=== PATIENT | male | born 1955 | race Caucasian/White ===

== ENCOUNTER 2016-06-01 12:47 | Emergency (ER) | payer BC, OTHER ==
[~2016-06-01 12:47] MED LIST: AMLO10TA2 PO; ASPI81TA44 PO; LISI1TAB7 PO
[2016-06-01] MEDS ORDERED: IV NORMAL SALINE 1000ML BAG 1,000 ML IV SCH (13:33)
--- NOTE | 2016-06-01 13:38 | PHYS DOC ---
Past Medical History Past Medical History: Alcoholism, Hypertension Additional Past Medical Histor: "BLOOD INFECTION" "ENLARGED HEART" RUPTURED SPLEEN Past Surgical History: No Surgical History Alcohol Use: Heavy Drug Use: Marijuana Adult General Chief Complaint Chief Complaint: ABDOMINAL PAIN HPI HPI Patient is a 61 year old female who presents with abdominal pain. Patient reports for the past 3 days he has been having "hard" abdominal pain has been moving around his abdomen some. Patient reports pain around his umbilicus, as well as the upper abdomen. This is accompanied by nausea and vomiting as well as hot flashes. He denies any diarrhea. No clear inciting or mitigating factors. He did take a Prilosec this morning with insufficient relief. Review of Systems Review of Systems Constitutional: Hot flashes Eyes: Denies change in visual acuity or eye pain HENT: Denies nasal congestion or sore throat Respiratory: Denies cough or shortness of breath Cardiovascular: Denies chest pain GI: Abdominal pain, nausea, vomiting. Denies bloody stools or diarrhea : Denies dysuria or hematuria Musculoskeletal: Denies back pain or joint pain Integument: Denies rash or skin lesions Neurologic: Denies headache, focal weakness or sensory changes Current Medications Current Medications Current Medications Medications (Trade) Dose Ordered Sig/Partha Start Time Stop Time Status Last Admin Dose Admin Famotidine (Pepcid) 20 mg 1X ONCE 06/01/16 13:45 06/01/16 13:46 DC 06/01/16 13:49 20 MG Hydromorphone HCl (Dilaudid) 0.5 mg 1X ONCE 06/01/16 16:45 06/01/16 16:56 DC 06/01/16 17:15 0.5 MG Info (Do NOT chart on this entry -- for MONITORING) 1 each PRN DAILY PRN 06/01/16 14:15 06/01/16 19:37 DC Iohexol (Omnipaque 300 Mg/ml) 60 ml 1X ONCE 06/01/16 14:15 06/01/16 14:16 DC 06/01/16 14:13 60 ML Morphine Sulfate 4 mg 1X ONCE 06/01/16 13:45 06/01/16 13:46 DC 06/01/16 13:50 4 MG Ondansetron HCl (Zofran) 4 mg 1X ONCE 06/01/16 13:45 06/01/16 13:46 DC 06/01/16 13:49 4 MG Sodium Chloride (Iv Sodium Chloride 0.9% 1000ml Bag) 1,000 ml @ 1,000 mls/hr Q1H 06/01/16 13:33 06/01/16 14:32 DC 06/01/16 13:33 1,000 MLS/HR Allergies Allergies Allergies Coded Allergies Type Severity Reaction Last Updated Verified No Known Drug Allergies 06/08/13 No Physical Exam Physical Exam Constitutional: Well developed, well nourished, no acute distress, non-toxic appearance HENT: Normocephalic, atraumatic, bilateral external ears normal Eyes: EOMI, conjunctiva normal, no discharge Neck: Normal range of motion, no stridor Cardiovascular: Heart rate normal, regular rhythm, no murmur Lungs & Thorax: Bilateral breath sounds clear to auscultation Abdomen: Bowel sounds normal, soft, non-distended, periumbilical/RUQ TTP without guarding or rebound, negative Kraft's sign Skin: Warm, dry, no erythema, no rash Extremities: No obvious deformity, no edema Neurologic: Alert and oriented X 3, no gross deficits noted Psychologic: Affect normal, judgement normal, mood normal Current Patient Data Vital Signs Vital Signs Date Time Temp Pulse Resp B/P Pulse Ox O2 Delivery O2 Flow Rate FiO2 06/01/16 17:15 12 06/01/16 13:55 64 201/108 96 06/01/16 13:33 98.4 Room Air 98.4 Lab Values Laboratory Tests Test 06/01/16 13:10 06/01/16 13:25 Urine Collection Type Unknown Urine Color [place] Urine Clarity Clear Urine pH 6.0 Urine Specific [place] 1.020 Urine Protein >=300mg/dL (NEG-TRACE) Urine Glucose (UA) 100mg/dL (NEG) Urine Ketones (Stick) 15mg/dL (NEG) Urine Blood Small (NEG) Urine Nitrite Negative (NEG) Urine Bilirubin Small (NEG) Urine Urobilinogen Dipstick 1.0mg/dL (0.2 mg/dL) Urine Leukocyte Esterase Trace (NEG) Urine RBC 3-5/HPF (0-2) Urine WBC 1-4/HPF (0-4) Urine Squamous Epithelial Cells Occ/LPF Urine Bacteria 0/HPF (0-FEW) Urine Hyaline Casts Few/HPF Urine Mucus Mod/LPF White Blood Count 10.0x10^3/uL (4.0-11.0) Red Blood Count 5.19x10^6/uL (4.30-5.70) Hemoglobin 20.0g/dL (13.0-17.5) H Hematocrit 57.6% (39.0-53.0) H Mean Corpuscular Volume 111fL (79-100) H Mean Corpuscular Hemoglobin 39pg (25-35) H Mean Corpuscular Hemoglobin Concent 35g/dL (31-37) Red Cell Distribution Width 14.3% (11.5-14.5) Platelet Count 114x10^3/uL (140-400) L Neutrophils (%) (Auto) 78% (31-73) H Lymphocytes (%) (Auto) 12% (24-48) L Monocytes (%) (Auto) 9% (0-9) Eosinophils (%) (Auto) 1% (0-3) Basophils (%) (Auto) 1% (0-3) Neutrophils # (Auto) 7.8x10^3uL (1.8-7.7) H Lymphocytes # (Auto) 1.2x10^3/uL (1.0-4.8) Monocytes # (Auto) 0.9x10^3/uL (0.0-1.1) Eosinophils # (Auto) 0.1x10^3/uL (0.0-0.7) Basophils # (Auto) 0.0x10^3/uL (0.0-0.2) Platelet Estimate Decreased (ADEQUATE) Macrocytosis Mod Sodium Level 134mmol/L (136-145) L Potassium Level 3.4mmol/L (3.5-5.1) L Chloride Level 97mmol/L (98-107) L Carbon Dioxide Level 25mmol/L (21-32) Anion Gap 12 (6-14) Blood Urea Nitrogen 13mg/dL (8-26) Creatinine 1.5mg/dL (0.7-1.3) H Estimated GFR (Cockcroft-Gault) 47.6 BUN/Creatinine Ratio 9 (6-20) Glucose Level 122mg/dL (70-99) H Calcium Level 9.9mg/dL (8.5-10.1) Total Bilirubin 2.5mg/dL (0.2-1.0) H Aspartate Amino Transferase (AST) 57U/L (15-37) H Alanine Aminotransferase (ALT) 66U/L (16-63) H Alkaline Phosphatase 83U/L (46-116) Total Protein 8.6g/dL (6.4-8.2) H Albumin 4.1g/dL (3.4-5.0) Albumin/Globulin Ratio 0.9 (1.0-1.7) L Lipase 330U/L (73-393) Laboratory Tests 06/01/16 13:25 Laboratory Tests 06/01/16 13:25 EKG EKG [] Radiology/Procedures Radiology/Procedures CT A/P: IMPRESSION: 1. No evidence of bowel obstruction or appendicitis. 2. Partially calcified masslike structure adjacent to the spleen. Correlate for possible causes such as old calcified hematoma although other causes such as a calcified mass are within the differential. If this is an unknown finding and further information is desired nonemergent MRI with contrast could be obtained to assess for solid component. 3. Degenerative changes the spine including suspected disc protrusion at L4-5 likely narrowing central canal. 4. Low-attenuation of liver. Nonspecific but can be seen with fatty infiltration. RUQ US: IMPRESSION 1. Echogenic liver, compatible with fatty liver disease. 2. No evidence of gallbladder pathology. Course & Med Decision Making Course & Med Decision Making Pertinent Labs and Imaging studies reviewed. (See chart for details) Patient is 61 year old male who presents with abdominal pain and nausea/ vomiting. DDx includes gastritis/gastroenteritis, PUD, pancreatitis, enteritis, gallbladder disease. Will check labs, CT abdomen/pelvis. IV fluids, pain meds, nausea meds ordered for patient comfort. Labs most notable for elevated LFTs. CT scan results as above. RUQ US ordered for further evaluation, results as above. Discussed results with patient, who is feeling better at this time. Discussed disposition tonight, patient would like to go home. As such will discharge with instructions for close outpatient follow up. Given rx for pain and nausea meds (already takes omeprazole) and strict return precautions. Dragon Disclaimer Dragon Disclaimer This electronic medical record was generated, in whole or in part, using a voice recognition dictation system. Departure Departure Impression: Primary Impression: Abdominal pain Additional Impressions: Nausea & vomiting Elevated LFTs Disposition: HOME, SELF-CARE Condition: IMPROVED Referrals: OLIVIER ANDRADE MD, TERRY A MD Patient Instructions: Abdominal Pain (Nonspecific), Nausea and Vomiting Additional Instructions: Thank you for allowing us to provide care today in the Emergency Department. Take the provided medication as directed. Use caution after taking this medication as it can make you drowsy. Be sure to continue taking the omeprazole that you already take. Schedule a follow up appointment with your primary care doctor and a GI specialist using the provided contact information. Return promptly to the Emergency Department if you develop any new or concerning symptoms, such as worsening abdominal pain or fever. Scripts Ondansetron (Zofran Odt)4 Mg Tab.rapdis1 Tab SL Q8HRS PRN NAUSEA #15 TAB Prov:SPIKE CARTER MD 06/01/16 Oxycodone Hcl 5 Mg Tablet5 Mg PO Q8HRS PRN PAIN #15 TAB Ref 0 Prov:SPIKE CARTER MD 06/01/16 Problem Qualifiers SPIKE CARTER MD Jun 01, 2016 13:38
[2016-06-01 13:42] LABS: BASO % 1 % (0-3); EOS % 1 % (0-3); HEMATOCRIT 57.6 % (39.0-53.0); LYMPH # 1.2 x10^3/uL (1.0-4.8); LYMPH % 12 % (24-48); MEAN CORPUSCULAR HEMOGLOBIN 39 pg (25-35); MEAN CORPUSCULAR HGB CONC 35 g/dL (31-37); MEAN CORPUSCULAR VOLUME 111 fL (79-100); MONO % 9 % (0-9); NEUT % 78 % (31-73); PLATELET COUNT 114 x10^3/uL (140-400); RED BLOOD COUNT 5.19 x10^6/uL (4.30-5.70); RED CELL DISTRIBUTION WIDTH 14.3 % (11.5-14.5)
[2016-06-01] MEDS ORDERED: FAMOTIDINE 20 MG/2 ML VIAL IVP ONE (13:45)
[2016-06-01] MEDS ORDERED: MORPHINE SULFATE 4 MG/ML DISP.SYRIN. IV ONE (13:45)
[2016-06-01] MEDS ORDERED: ONDANSETRON PF 4 MG/2 ML VIAL. IV ONE (13:45)
[2016-06-01 13:55] VITALS: BP 201/108
[2016-06-01 13:57] LABS: CALCIUM 9.9 mg/dL (8.5-10.1); CREATININE 1.5 mg/dL (0.7-1.3); GFR 47.6; POTASSIUM 3.4 mmol/L (3.5-5.1)
[2016-06-01 14:04] LABS: ALBUMIN 4.1 g/dL (3.4-5.0); ALBUMIN/GLOBULIN RATIO 0.9 (1.0-1.7); TOTAL BILIRUBIN 2.5 mg/dL (0.2-1.0); TOTAL PROTEIN 8.6 g/dL (6.4-8.2)
[2016-06-01 14:10] LABS: BILIRUBIN,URINE SMALL (NEG); GLUCOSE,URINE 100 mg/dL (NEG); NITRITE,URINE NEGATIVE (NEG); PROTEIN,URINE >=300 mg/dL (NEG-TRACE)
[2016-06-01] MEDS ORDERED: IOHEXOL 300 MG/ML 75 ML VIAL IV ONE (14:15)
[2016-06-01] MEDS ORDERED: CONTRAST GIVEN MC PRN (14:15)
[2016-06-01 14:20] LABS: BACTERIA,URINE 0 /HPF (0-FEW); SQUAMOUS EPITHELIAL CELL,UR OCC /LPF
--- NOTE | 2016-06-01 14:41 | RAD ---
INDICATION: Nausea and vomiting COMPARISON: None. TECHNIQUE: Axial CT images were obtained through the abdomen and pelvis with intravenous contrast. Coronal reformations were processed. FINDINGS: Abdomen: Chest Base: Calcific atherosclerosis of aortic valve and partially visually coronary arteries. Vessels: Severe atherosclerotic disease. Liver/Biliary: Low-attenuation Pancreas: No gross abnormality. Spleen: Adjacent to the spleen there is a partially calcified structure identified measuring 47 x 35 mm. Kidneys/Adrenal: No hydronephrosis. GI: Small fat-containing left inguinal hernia. Appendix does not appear grossly inflamed. No dilated loops of bowel suggest obstruction. Pelvis: Bladder: Partially distended without gross abnormality. Degenerative changes of spine. IMPRESSION: 1. No evidence of bowel obstruction or appendicitis. 2. Partially calcified masslike structure adjacent to the spleen. Correlate for possible causes such as old calcified hematoma although other causes such as a calcified mass are within the differential. If this is an unknown finding and further information is desired nonemergent MRI with contrast could be obtained to assess for solid component. 3. Degenerative changes the spine including suspected disc protrusion at L4-5 likely narrowing central canal. 4. Low-attenuation of liver. Nonspecific but can be seen with fatty infiltration. PQRS Compliance Statement: One or more of the following individualized dose reduction techniques were utilized for this examination: 1. Automated exposure control 2. Adjustment of the mA and/or kV according to patient size 3. Use of iterative reconstruction technique
[2016-06-01] MEDS ORDERED: HYDROMORPHONE 2 MG/ML VIAL. IV ONE (16:45)
--- NOTE | 2016-06-01 18:25 | RAD ---
PROCEDURE Right upper quadrant abdominal ultrasound. HISTORY Right upper quadrant pain. TECHNIQUE Transabdominal imaging was performed. COMPARISON None. FINDINGS Gallbladder is not well seen. Visualized aorta and IVC are grossly unremarkable. Liver is diffusely increased in echogenicity. Liver is incompletely visualized. Right hepatic lobe measures 16.4 centimeters in length. No gross focal hepatic mass is identified. Gallbladder is without evidence of stone or inflammation. Common bile duct has normal caliber at 2 millimeters. Right kidney measures 10.0 centimeters in length. Right kidney is without evidence of obstruction or stone. IMPRESSION 1. Echogenic liver, compatible with fatty liver disease. 2. No evidence of gallbladder pathology. Electronically signed by: Colin Oates MD (Jun 01, 2016 18:24:04)
[2016-06-01] MEDS ORDERED: OXYC5TAB PO (18:51)
[2016-06-01] MEDS ORDERED: ONDA4TAB10 SL (18:51)
[2016-06-01 20:43] LABS: PLT ESTIMATE DECREASED (ADEQUATE)
--- NOTE | 2016-06-02 12:23 | EKG ---
[facility] [address] [place] [address] Test Date: 2016-06-01 Test Time: 13:55:02 Pat Name: VICKY VITALE Department: Room: Gender: M Him Analyst: : 1955 Requested By: SPIKE CARTER Order Number: [id number] Reading MD: Preston Espinoza Measurements Intervals [place] Rate: 60 P: 24 DE: 180 QRS: -20 QRSD: 88 T: 8 QT: 410 QTc: 414 Interpretive Statements SINUS RHYTHM LEFTWARD AXIS CONSIDER LEFT VENTRICULAR HYPERTROPHY QRS(T) CONTOUR ABNORMALITY CONSISTENT WITH ANTEROSEPTAL INFARCT AGE UNDETERMINED CONSIDER INFERIOR INFARCT ABNORMAL ECG RI6.01 Compared to ECG 10/30/2014 23:33:30 Left-axis deviation now present Myocardial infarct finding now present Electronically Signed On 06-17-2016 9:51:36 [employer] by Preston Espinoza
== END 2016-06-01 19:35 | disposition home or self-care (01) ==
LOC: ER 12:47
DX: R10.33 Periumbilical pain (principal); R11.2 Nausea with vomiting, unspecified; R79.89 Other specified abnormal findings of blood chemistry; I10 Essential (primary) hypertension; F12.10 Cannabis abuse, uncomplicated
CPT/HCPCS: 36415; 74177; 76705; 80053; 81001; 83690; 85007; 85027; 87086; 93005; 96361; 96374; 96375; 99285; J1170; J2270; J2405; J7030; Q9967; S0028

== ENCOUNTER 2017-02-27 07:46 | Inpatient (IN) | payer BC ==
[~2017-02-27] VITALS: Ht 172.7 cm; Wt 82.2 kg
[~2017-02-27 07:46] MED LIST changes: +LISI10TA2 PO; +METO25TA4 PO; +ONDA4TAB10 SL; +OXYC5TAB95 PO
[2017-02-27] MEDS ORDERED: cloNIDine HCL 0.1 MG TABLET PO ONE (08:00)
[2017-02-27] MEDS ORDERED: chlorproMAZINE 25 MG in IV DEXTROSE 5% 50 ML IV ONE (08:15)
[2017-02-27 08:25] LABS: BASO # 0.1 x10^3/uL (0.0-0.2); BASO % 1 % (0-3); EOS % 1 % (0-3); HEMATOCRIT 52.3 % (39.0-53.0); HEMOGLOBIN 18.1 g/dL (13.0-17.5); LYMPH # 0.8 x10^3/uL (1.0-4.8); LYMPH % 12 % (24-48); MEAN CORPUSCULAR HEMOGLOBIN 39 pg (25-35); MEAN CORPUSCULAR HGB CONC 35 g/dL (31-37); MEAN CORPUSCULAR VOLUME 112 fL (79-100); MONO % 8 % (0-9); NEUT % 78 % (31-73); PLATELET COUNT 170 x10^3/uL (140-400); RED BLOOD COUNT 4.66 x10^6/uL (4.30-5.70); RED CELL DISTRIBUTION WIDTH 13.5 % (11.5-14.5); WHITE BLOOD COUNT 6.7 x10^3/uL (4.0-11.0)
--- NOTE | 2017-02-27 08:27 | PHYS DOC ---
Past Medical History Past Medical History: Alcoholism, Hypertension Additional Past Medical Histor: "BLOOD INFECTION" "ENLARGED HEART" RUPTURED SPLEEN Past Surgical History: No Surgical History Alcohol Use: Heavy Drug Use: Benzodiazepine, Marijuana Adult General Chief Complaint Chief Complaint: WEAKNESS/GENERALIZED HPI HPI Patient is a 61 year old male with history of alcoholism and hypertension who presents with acute onset posterior headache and neck pain starting yesterday warning. Symptoms are associated with ataxia and nausea and tingling in both hands. Patient denies vomiting, vision changes, change of hearing, tinnitus. Denies motor weakness. Patient has is a dictation to the hospital 2 weeks ago and had extensive workup and neurology consult. Patient BP elevated, 210/115 on ED arrival. Patient states he has not been able to take his blood pressure medications due nausea and hiccups. Of note, patient was admitted to this facility approximately 2 weeks ago with headache and dizziness. [] Review of Systems Review of Systems Review symptoms as per history of present illness. All other review symptoms are negative. All other systems were reviewed and found to be within normal limits, except as documented in this note. Current Medications Current Medications Current Medications Medications (Trade) Dose Ordered Sig/Partha Start Time Stop Time Status Last Admin Dose Admin Aspirin (Children'S Aspirin) 162 mg 1X ONCE 02/27/17 12:45 02/27/17 12:51 DC 02/27/17 13:01 162 MG Chlorpromazine HCl 25 mg/Dextrose 51 ml @ 100 mls/hr 1X ONCE 02/27/17 08:15 02/27/17 08:15 DC Chlorpromazine HCl 25 mg/Sodium Chloride 51 ml @ 100 mls/hr 1X ONCE 02/27/17 08:15 02/27/17 08:45 DC 02/27/17 08:27 100 MLS/HR Clonidine HCl (Catapres) 0.2 mg 1X ONCE 02/27/17 08:00 02/27/17 08:01 DC 02/27/17 08:26 0.2 MG Diphenhydramine HCl (Benadryl) 25 mg 1X ONCE 02/27/17 10:15 02/27/17 10:16 DC 02/27/17 10:25 25 MG Info (Do NOT chart on this entry -- for MONITORING) 1 each PRN DAILY PRN 02/27/17 10:45 03/01/17 10:44 Iohexol (Omnipaque 300 Mg/ml) 75 ml 1X ONCE 02/27/17 10:45 02/27/17 10:46 DC 02/27/17 10:55 75 ML Metoclopramide HCl (Reglan Vial) 10 mg 1X ONCE 02/27/17 10:15 02/27/17 10:16 DC 02/27/17 10:25 10 MG Allergies Allergies Allergies Coded Allergies Type Severity Reaction Last Updated Verified No Known Drug Allergies 06/08/13 No Physical Exam Physical Exam Constitutional: Well developed, well nourished, no acute distress, non-toxic appearance. [] HENT: Normocephalic, atraumatic, bilateral external ears normal. [] Eyes: PERRLA, EOMI, conjunctiva normal. [] Neck: Normal range of motion. No tenderness to palpation.[] Cardiovascular: Regular rate and rhythm.[] Lungs & Thorax: Bilateral breath sounds clear to auscultation [] Abdomen: Bowel sounds normal, soft, no tenderness, no masses, no pulsatile masses. [] Skin: Warm, dry. [] Back: No tenderness. [] Extremities: No tenderness. [] Neurologic: Alert and oriented X 3, cranial nerves II through XII grossly intact , normal motor function, normal sensory function, no focal deficits noted. Normal oofiaz-xp-ttoc, normal pukr-xi-ocsv. Extremity score 0 per nursing stroke evaluation.[] Current Patient Data Vital Signs Vital Signs Date Time Temp Pulse Resp B/P (MAP) Pulse Ox O2 Delivery O2 Flow Rate FiO2 02/27/17 12:38 60 17 97 02/27/17 08:26 187/101 02/27/17 07:50 98.3 Room Air 98.3 Lab Values Laboratory Tests Test 02/27/17 08:10 02/27/17 10:05 White Blood Count 6.7 x10^3/uL (4.0-11.0) Red Blood Count 4.66 x10^6/uL (4.30-5.70) Hemoglobin 18.1 g/dL (13.0-17.5) H Hematocrit 52.3 % (39.0-53.0) Mean Corpuscular Volume 112 fL (79-100) H Mean Corpuscular Hemoglobin 39 pg (25-35) H Mean Corpuscular Hemoglobin Concent 35 g/dL (31-37) Red Cell Distribution Width 13.5 % (11.5-14.5) Platelet Count 170 x10^3/uL (140-400) Neutrophils (%) (Auto) 78 % (31-73) H Lymphocytes (%) (Auto) 12 % (24-48) L Monocytes (%) (Auto) 8 % (0-9) Eosinophils (%) (Auto) 1 % (0-3) Basophils (%) (Auto) 1 % (0-3) Neutrophils # (Auto) 5.3 x10^3uL (1.8-7.7) Lymphocytes # (Auto) 0.8 x10^3/uL (1.0-4.8) L Monocytes # (Auto) 0.5 x10^3/uL (0.0-1.1) Eosinophils # (Auto) 0.1 x10^3/uL (0.0-0.7) Basophils # (Auto) 0.1 x10^3/uL (0.0-0.2) Platelet Estimate Adequate (ADEQUATE) Macrocytosis Mod Sodium Level 132 mmol/L (136-145) L Potassium Level 3.7 mmol/L (3.5-5.1) Chloride Level 99 mmol/L (98-107) Carbon Dioxide Level 24 mmol/L (21-32) Anion Gap 9 (6-14) Blood Urea Nitrogen 13 mg/dL (8-26) Creatinine 1.1 mg/dL (0.7-1.3) Estimated GFR (Cockcroft-Gault) 68.1 BUN/Creatinine Ratio 12 (6-20) Glucose Level 149 mg/dL (70-99) H Calcium Level 9.2 mg/dL (8.5-10.1) Magnesium Level 1.9 mg/dL (1.8-2.4) Total Bilirubin 1.4 mg/dL (0.2-1.0) H Aspartate Amino Transferase (AST) 29 U/L (15-37) Alanine Aminotransferase (ALT) 35 U/L (16-63) Alkaline Phosphatase 61 U/L (46-116) Total Protein 7.6 g/dL (6.4-8.2) Albumin 3.5 g/dL (3.4-5.0) Albumin/Globulin Ratio 0.9 (1.0-1.7) L Thyroid Stimulating Hormone (TSH) 2.584 uIU/mL (0.358-3.74) Urine Opiates Screen Neg (NEG) Urine Methadone Screen Neg (NEG) Urine Barbiturates Neg (NEG) Urine Phencyclidine Screen Neg (NEG) Urine Amphetamine/Methamphetamine Neg (NEG) Urine Benzodiazepines Screen Pos (NEG) Urine Cocaine Screen Neg (NEG) Urine Cannabinoids Screen Pos (NEG) Urine Ethyl Alcohol Neg (NEG) Laboratory Tests 02/27/17 08:10 Laboratory Tests 02/27/17 08:10 EKG EKG [EKG: Sinus rhythm, rate 61, no acute ST-T wave changes, QTC 412.] Radiology/Procedures Radiology/Procedures [MRI brain or cervical spine: Small acute infarct of inferior left medulla. 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 Course & Med Decision Making Course & Med Decision Making Pertinent Labs and Imaging studies reviewed. (See chart for details) [Patient with evidence of acute acute CVA and recent cerebellar infarct likely contributing to ataxia. CT angios head and neck do not show evidence of acute dissection, but show occlusion of Left vertebral artery. NIH stroke score is 0. Aspirin given. Blood pressure addressed, with clonidine repeat labetalol. Dr. Yoon to admit.] Dragon Disclaimer Dragon Disclaimer This electronic medical record was generated, in whole or in part, using a voice recognition dictation system. 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
[2017-02-27 08:37] LABS: CALCIUM 9.2 mg/dL (8.5-10.1); CREATININE 1.1 mg/dL (0.7-1.3); GFR 68.1; POTASSIUM 3.7 mmol/L (3.5-5.1)
[2017-02-27 08:43] LABS: ALBUMIN 3.5 g/dL (3.4-5.0); ALBUMIN/GLOBULIN RATIO 0.9 (1.0-1.7); TOTAL BILIRUBIN 1.4 mg/dL (0.2-1.0); TOTAL PROTEIN 7.6 g/dL (6.4-8.2)
--- NOTE | 2017-02-27 08:44 | EKG ---
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
[2017-02-27] MEDS ORDERED: METOCLOPRAMIDE HCL 10 MG/2 ML VIAL. IV ONE (10:15)
[2017-02-27] MEDS ORDERED: diphenhydrAMINE 50 MG/ML VIAL IVP ONE (10:15)
[2017-02-27 10:24] LABS: BARBITURATES NEG (NEG); BENZODIAZEPINES POS (NEG); CANNABINOIDS POS (NEG); COCAINE NEG (NEG); METHADONE NEG (NEG); OPIATES NEG (NEG); PHENCYCLIDINE NEG (NEG)
--- NOTE | 2017-02-27 10:34 | RAD ---
MRI Brain without contrast History: Bilateral arm and leg weakness, neck pain Technique: Multiplanar, multisequential noncontrast MR imaging was performed of the brain. Contrast: None Comparison: 02/11/2017 Findings: There is some motion degradation. There is suggestion of a small focus of restricted diffusion of the inferior left medulla up to 0.2 cm in size. There is no intra-axial mass effect, midline shift or extra-axial fluid collection. There is again generalized mild supratentorial atrophy. There is patchy very mild paranasal sinus mucosal thickening. Mastoid air cells are mostly aerated, minimal fluid in the left. There are old lacunar infarcts of the bilateral cerebellum with the largest on the left, the left robbin, and left thalamus as seen previously. There is other scattered overall mild T2 and FLAIR hyperintense abnormality of the supratentorial white matter as seen previously. There is abnormal signal within the left Impression: 1. There is small acute infarct of the inferior left medulla. There is abnormal signal of the visualized left intradural vertebrobasilar artery, may be due to underlying atherosclerotic disease and stenosis although thromboembolism not excluded. 2. There are again old lacunar infarcts as stated. Other minimal T2 and FLAIR hyperintense abnormality of the supratentorial parenchyma may be due to chronic microvascular ischemic disease. 3. There is generalized supratentorial atrophy. FOR INTERNAL CODING PURPOSES Critical result: Findings discussed with Dr. Castro at 02/27/2017 10:28 AM. RESULT CODE: (C) Electronically signed by: Brandon Elise MD (02/27/2017 10:31 AM) [id number]
--- NOTE | 2017-02-27 10:41 | RAD ---
MRI Cervical Spine Without Contrast History:BILATERAL ARM AND LEG WEAKNESS, PAIN IN NECK Technique: Multiplanar, multi sequential noncontrast MR imaging was performed of the cervical spine. Comparison: None Findings: There is mild motion. Cervical cord caliber is within normal limits. No defined cord signal abnormality is identified, limited evaluation for subtle signal change due to motion artifact. Cervical vertebral body stature and AP alignment are maintained. There is [id number] degenerative disc disease C6-7 and minimally at C5-6. Trace C6-7 endplate edema is likely reactive/degenerative in etiology. There is mild mucosal thickening of the visualized right maxillary sinus. C2-C3: Spinal canal and neural foramina are adequate. C3-C4: Spinal canal and neural foramina are adequate. C4-C5: There is negligible posterior bulge. There is mild facet degenerative change greater on the right. There is uncovertebral degenerative change. Central canal is adequate on the order of 11 mm. There is overall moderate neural foramina compromise bilaterally. C5-C6: There is disc osteophyte complex and bulge. Central canal is minimally narrowed to 9 to 10 mm. There is uncovertebral degenerative change bilaterally. There is right greater than left left facet degenerative change. There is moderate to severe right and fairly severe left neural foramina compromise. C6-C7: There is disc osteophyte complex and bulge. Central canal is minimally narrowed to 8 to 9 mm. There is uncovertebral degenerative change and facet degenerative change bilaterally. There is fairly severe left and moderate to severe right neural foramina compromise. C7-T1: Spinal canal and neural foramina are adequate. Impression: 1. There is mild spinal stenosis C6-7 and to a lesser degree at C5-6. There is degenerative disc disease and spondylosis greatest at the same levels. 2. Facet and uncovertebral degenerative change contributes to neural foramina compromise as stated greatest bilaterally at C5-C6 and C6-7 and to lesser degree at C4-5. Electronically signed by: Brandon Elise MD (02/27/2017 10:38 AM) [id number]
[2017-02-27] MEDS ORDERED: CONTRAST GIVEN MC PRN (10:45)
[2017-02-27] MEDS ORDERED: IOHEXOL 300 MG/ML 100ML VIAL. PO ONE (10:45)
--- NOTE | 2017-02-27 11:56 | RAD ---
CTA head and neck 02/27/2017 Clinical indication: Evaluate for vertebral artery thrombus/dissection. Comparison: Same day MRI brain. Technique: Multiple CTA images of the head and neck were obtained following the intravenous administration of 75 mL Omnipaque 300. MIPS were obtained of the head and neck. PQRS Compliance Statement: One or more of the following individualized dose reduction techniques were utilized for this examination: 1. Automated exposure control 2. Adjustment of the mA and/or kV according to patient size 3. Use of iterative reconstruction technique Findings: CTA head: There is conventional 3 vessel thoracic aortic anatomy. There are short segment anomaly soft plaque just distal to the origin of the left subclavian artery with resultant estimated 50% narrowing series 3/image 61. There is mild predominantly soft plaque at the origin of the left common carotid and brachiocephalic arteries, remain patent. There is scattered predominantly soft plaque throughout the left common carotid without high-grade narrowing. There is moderate predominantly soft plaque at the origin of the left internal carotid artery resulting in estimated 50% narrowing according to NASCET criteria. There is mild scattered mixed atheromatous disease throughout the right common carotid artery without high-grade narrowing. There is mild predominantly calcified plaque at the origin of the right internal carotid artery and scattered throughout the right internal carotid artery without high-grade narrowing according to NASCET criteria. The majority of the left vertebral artery is completely occluded from its origin to the left V4 segment with two small areas of opacification. There is calcified plaque at the origin of the right vertebral artery which limits evaluation to estimate focal narrowing. There is distal opacification of the right vertebral artery. There is moderate mixed short segment atheromatous disease of the proximal right V2 segment resulting in an estimated 50% narrowing. There is opacification of the distal left V4 segment which is diminutive. The distal right vertebral artery, specifically the V4 segment, is also diminutive, however opacified. There are multiple punctate calcifications of the palatine tonsils, likely tonsillitis. The visualized lung apices are unremarkable. CTA head: There is scattered probably calcified atheromatous disease throughout the distal internal carotid arteries, greatest at the petrous segment resulting in approximately 50% narrowing. The anterior cerebral, middle cerebral and posterior cerebral arteries are patent. No evidence of aneurysm or arteriovenous malformation. The left posterior commuting artery is hypoplastic or absent. Note is made of a hypoplastic right A2 segment. Impression: CTA neck: 1. Complete occlusion of the left vertebral artery with a diminutive, opacified distal left V4 segment. 2. Focal calcified plaque at the origin of the right vertebral artery with suboptimal evaluation of degree of associated narrowing. There is distal opacification of the right vertebral artery. 3. Mixed atheromatous disease at the origin of the left internal carotid artery with resultant 50% narrowing. 4. Additional scattered atheromatous disease throughout the carotid arterial system. CTA head: 1. Scattered probably calcified plaque of the distal internal carotid arteries, with estimated 50% narrowing at the petrous segment right internal carotid artery without occlusion. Patency of the major intracranial arteries. These results were discussed with Dr. Castro of the emergency service by telephone at 11:45 AM 02/27/[address] Cordell Chavez.
[2017-02-27] MEDS ORDERED: ASPIRIN CHEWABLE 81 MG TABLET. PO ONE (12:45)
[2017-02-27 13:08] LABS: PLT ESTIMATE ADEQUATE (ADEQUATE)
[2017-02-27] MEDS ORDERED: fentaNYL PF VIAL 100 MCG/2 ML VIAL IV PRN (13:45)
[2017-02-27] MEDS ORDERED: ONDANSETRON PF 4 MG/2 ML VIAL. IV PRN ×2 (13:45→15:30)
[2017-02-27] MEDS ORDERED: LABETALOL 20 MG/4 ML DISP.SYRIN. IVP PRN (13:45)
[2017-02-27 15:00] VITALS: BP 156/88
[2017-02-27] MEDS ORDERED: hydrALAZINE 20 MG/ML VIAL. IVP PRN (15:30)
[2017-02-27] MEDS ORDERED: ACETAMINOPHEN 325 MG TABLET. PO PRN (15:30)
[2017-02-27] MEDS ORDERED: MORPHINE SULFATE 4 MG/ML DISP.SYRIN. IV PRN (15:30)
[2017-02-27] MEDS ORDERED: CLOPIDOGREL BISULFATE 75 MG TABLET PO ONE (15:30)
[2017-02-27] MEDS ORDERED: DOCUSATE SODIUM 100 MG CAPSULE. PO PRN (15:30)
[2017-02-27] MEDS ORDERED: traMADol 50 MG TABLET PO PRN (15:30)
--- NOTE | 2017-02-27 15:36 | PDOC1 ---
History and Physical Date of Admission Date of Admission 02/27/17 Identification/Chief Complaint Chief Complaint unsteady gait, neck pain, headache Problems: Source Source: Chart review, Patient History of Present Illness History of Present Illness HPI Patient is a 61 year old male with history of alcoholism and hypertension come for headache, unsteady gait. He was here 2 weeks ago for unsteady gait, Head ct neg, carotid US neg, and dced home. He is taking ASA , HTN meds daily, but said likely not enough for his BP, HE cont having unsteady gait, feels bl leg weak, sometimes left side is worse, also left face some numbness. No vision, swallow problems. He started to feel left side neck pain with some headache today. No N/V, cough, chest pain, sob. quit ETOH x2 weeks, before was drink 2 beers daily. 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 as per ERP, he talked to [facility] who recommend no sx. BP >200 in ER, got meds and BP now 130s with sinus yareli HR 40s. inge marijuana, but + in drug tox. 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 Status: Acute Current Medications Current Medications Current Medications Medications (Trade) Dose Ordered Sig/Partha Start Time Stop Time Status Last Admin Dose Admin Aspirin (Children'S Aspirin) 162 mg 1X ONCE 02/27/17 12:45 02/27/17 12:51 DC 02/27/17 13:01 162 MG Chlorpromazine HCl 25 mg/Dextrose 51 ml @ 100 mls/hr 1X ONCE 02/27/17 08:15 02/27/17 08:15 DC Chlorpromazine HCl 25 mg/Sodium Chloride 51 ml @ 100 mls/hr 1X ONCE 02/27/17 08:15 02/27/17 08:45 DC 02/27/17 08:27 100 MLS/HR Clonidine HCl (Catapres) 0.2 mg 1X ONCE 02/27/17 08:00 02/27/17 08:01 DC 02/27/17 08:26 0.2 MG Diphenhydramine HCl (Benadryl) 25 mg 1X ONCE 02/27/17 10:15 02/27/17 10:16 DC 02/27/17 10:25 25 MG Fentanyl Citrate (Fentanyl 2ml Vial) 50 mcg PRN Q1HR PRN 02/27/17 13:45 02/28/17 13:44 Info (Do NOT chart on this entry -- for MONITORING) 1 each PRN DAILY PRN 02/27/17 10:45 03/01/17 10:44 Iohexol (Omnipaque 300 Mg/ml) 75 ml 1X ONCE 02/27/17 10:45 02/27/17 10:46 DC 02/27/17 10:55 75 ML Labetalol HCl (Normodyne) 20 mg PRN Q2HRS PRN 02/27/17 13:45 02/27/17 14:33 DC Metoclopramide HCl (Reglan Vial) 10 mg 1X ONCE 02/27/17 10:15 02/27/17 10:16 DC 02/27/17 10:25 10 MG Ondansetron HCl (Zofran) 4 mg PRN Q8HRS PRN 02/27/17 13:45 02/28/17 13:44 Allergies Allergies Allergies Coded Allergies Type Severity Reaction Last Updated Verified No Known Drug Allergies 06/08/13 No ROS Review of System CONSTITUTIONAL: No fever or chills EYES: No recent changes SKIN: No rash or itching CARDIOVASCULAR: No chest pain, syncope, palpitations, or edema RESPIRATORY: No SOB or cough GASTROINTESTINAL: No nausea, vomiting or abdominal pain NEUROLOGICAL: No headaches or weakness ENDOCRINE: No cold or heat intolerance GENITOURINARY: No urgency or frequency of urination MUSCULOSKELETAL: No back pain or joint pain LYMPHATICS: No enlarged lymph nodes PSYCHIATRIC: No anxiety or depression Physical Exam Physical Exam GEN.: No apparent distress. Alert and oriented. HEENT: Head is normocephalic, atraumatic NECK: Supple. LUNGS: Clear to auscultation. HEART: RRR, S1, S2 present. Peripheral pulses intact ABDOMEN: Soft, nontender. Positive bowel sounds. EXTREMITIES: Without any cyanosis. NEUROLOGIC: Normal speech, normal tone PSYCHIATRIC: Normal affect, normal mood. SKIN: No ulcerations Vitals Vitals Vital Signs Date Time Temp Pulse Resp B/P (MAP) Pulse Ox O2 Delivery O2 Flow Rate FiO2 02/27/17 13:38 53 13 97 02/27/17 08:26 187/101 02/27/17 07:50 98.3 Room Air 98.3 Labs Labs Laboratory Tests Test 02/27/17 08:10 02/27/17 10:05 White Blood Count 6.7 x10^3/uL (4.0-11.0) Red Blood Count 4.66 x10^6/uL (4.30-5.70) Hemoglobin 18.1 g/dL (13.0-17.5) Hematocrit 52.3 % (39.0-53.0) Mean Corpuscular Volume 112 fL (79-100) Mean Corpuscular Hemoglobin 39 pg (25-35) Mean Corpuscular Hemoglobin Concent 35 g/dL (31-37) Red Cell Distribution Width 13.5 % (11.5-14.5) Platelet Count 170 x10^3/uL (140-400) Neutrophils (%) (Auto) 78 % (31-73) Lymphocytes (%) (Auto) 12 % (24-48) Monocytes (%) (Auto) 8 % (0-9) Eosinophils (%) (Auto) 1 % (0-3) Basophils (%) (Auto) 1 % (0-3) Neutrophils # (Auto) 5.3 x10^3uL (1.8-7.7) Lymphocytes # (Auto) 0.8 x10^3/uL (1.0-4.8) Monocytes # (Auto) 0.5 x10^3/uL (0.0-1.1) Eosinophils # (Auto) 0.1 x10^3/uL (0.0-0.7) Basophils # (Auto) 0.1 x10^3/uL (0.0-0.2) Platelet Estimate Adequate (ADEQUATE) Macrocytosis Mod Sodium Level 132 mmol/L (136-145) Potassium Level 3.7 mmol/L (3.5-5.1) Chloride Level 99 mmol/L (98-107) Carbon Dioxide Level 24 mmol/L (21-32) Anion Gap 9 (6-14) Blood Urea Nitrogen 13 mg/dL (8-26) Creatinine 1.1 mg/dL (0.7-1.3) Estimated GFR (Cockcroft-Gault) 68.1 BUN/Creatinine Ratio 12 (6-20) Glucose Level 149 mg/dL (70-99) Calcium Level 9.2 mg/dL (8.5-10.1) Magnesium Level 1.9 mg/dL (1.8-2.4) Total Bilirubin 1.4 mg/dL (0.2-1.0) Aspartate Amino Transf (AST/SGOT) 29 U/L (15-37) Alanine Aminotransferase (ALT/SGPT) 35 U/L (16-63) Alkaline Phosphatase 61 U/L (46-116) Total Protein 7.6 g/dL (6.4-8.2) Albumin 3.5 g/dL (3.4-5.0) Albumin/Globulin Ratio 0.9 (1.0-1.7) Thyroid Stimulating Hormone (TSH) 2.584 uIU/mL (0.358-3.74) Urine Opiates Screen Neg (NEG) Urine Methadone Screen Neg (NEG) Urine Barbiturates Neg (NEG) Urine Phencyclidine Screen Neg (NEG) Urine Amphetamine/Methamphetamine Neg (NEG) Urine Benzodiazepines Screen Pos (NEG) Urine Cocaine Screen Neg (NEG) Urine Cannabinoids Screen Pos (NEG) Urine Ethyl Alcohol Neg (NEG) Laboratory Tests Test 02/27/17 08:10 02/27/17 10:05 White Blood Count 6.7 x10^3/uL (4.0-11.0) Red Blood Count 4.66 x10^6/uL (4.30-5.70) Hemoglobin 18.1 g/dL (13.0-17.5) Hematocrit 52.3 % (39.0-53.0) Mean Corpuscular Volume 112 fL (79-100) Mean Corpuscular Hemoglobin 39 pg (25-35) Mean Corpuscular Hemoglobin Concent 35 g/dL (31-37) Red Cell Distribution Width 13.5 % (11.5-14.5) Platelet Count 170 x10^3/uL (140-400) Neutrophils (%) (Auto) 78 % (31-73) Lymphocytes (%) (Auto) 12 % (24-48) Monocytes (%) (Auto) 8 % (0-9) Eosinophils (%) (Auto) 1 % (0-3) Basophils (%) (Auto) 1 % (0-3) Neutrophils # (Auto) 5.3 x10^3uL (1.8-7.7) Lymphocytes # (Auto) 0.8 x10^3/uL (1.0-4.8) Monocytes # (Auto) 0.5 x10^3/uL (0.0-1.1) Eosinophils # (Auto) 0.1 x10^3/uL (0.0-0.7) Basophils # (Auto) 0.1 x10^3/uL (0.0-0.2) Platelet Estimate Adequate (ADEQUATE) Macrocytosis Mod Sodium Level 132 mmol/L (136-145) Potassium Level 3.7 mmol/L (3.5-5.1) Chloride Level 99 mmol/L (98-107) Carbon Dioxide Level 24 mmol/L (21-32) Anion Gap 9 (6-14) Blood Urea Nitrogen 13 mg/dL (8-26) Creatinine 1.1 mg/dL (0.7-1.3) Estimated GFR (Cockcroft-Gault) 68.1 BUN/Creatinine Ratio 12 (6-20) Glucose Level 149 mg/dL (70-99) Calcium Level 9.2 mg/dL (8.5-10.1) Magnesium Level 1.9 mg/dL (1.8-2.4) Total Bilirubin 1.4 mg/dL (0.2-1.0) Aspartate Amino Transf (AST/SGOT) 29 U/L (15-37) Alanine Aminotransferase (ALT/SGPT) 35 U/L (16-63) Alkaline Phosphatase 61 U/L (46-116) Total Protein 7.6 g/dL (6.4-8.2) Albumin 3.5 g/dL (3.4-5.0) Albumin/Globulin Ratio 0.9 (1.0-1.7) Thyroid Stimulating Hormone (TSH) 2.584 uIU/mL (0.358-3.74) Urine Opiates Screen Neg (NEG) Urine Methadone Screen Neg (NEG) Urine Barbiturates Neg (NEG) Urine Phencyclidine Screen Neg (NEG) Urine Amphetamine/Methamphetamine Neg (NEG) Urine Benzodiazepines Screen Pos (NEG) Urine Cocaine Screen Neg (NEG) Urine Cannabinoids Screen Pos (NEG) Urine Ethyl Alcohol Neg (NEG) VTE Prophylaxis Ordered VTE Prophylaxis Devices: Yes VTE Pharmacological Prophylaxi: Yes Assessment/Plan Assessment/Plan unsteady gait 2/2 acute left medulla stroke left vertebral A total occlusion HTN urgency previous alcoholism, quit x2ws drug use with benzo , marijuana sinus bradycardia mild to moderate plan: neuro consult vascular consult, likely no intervention add plavix, lipitor for now check lipid panel keep BP <220/120 today lisinopril cont from tmr dvt ppx PTOT check vitb12 already got CTA, ECHO done ELHAM VALENCIA MD Feb 27, 2017 15:36
[2017-02-27] MEDS: LISINOPRIL 10 MG TABLET PO SCH (16:00)
[2017-02-27] MEDS: ENOXAPARIN 40 MG/0.4 ML SYRINGE. SQ SCH (16:00)
[2017-02-27] MEDS ORDERED: INFLUENZA VAX SCREEN BY RX. MC ONE (18:30)
--- NOTE | 2017-02-27 18:40 | PDOC2 ---
CONSULT Date of Consult Date of Consult DATE: 02/27/17 TIME: 18:22 Reason for Consult Reason for Consult: Left vertebral Artery occlusion History of Present Illness Reason for Visit: This is pleasant 61-year-old male who re-presents with ataxia favoring the left side, right-sided neck pain, and bilateral upper extremity numbness. He presented to the hospital 2 weeks ago and had a workup at that time which was negative. He was found during this admission to have an acute stroke to the left Medulla and finding of left vertebral artery occlusion. Patient denies any history of tobacco abuse other than in the distant past over 40 years ago. Patient does not drink heavily amounts of alcohol and states that prior to 2 weeks ago, he would generally drink 2 beers per day after work. Otherwise he has been fairly healthy and follows with his primary care doctor regularly. He did tell me that he was not the best at compliance with his medications prior to 2 weeks ago. He denies any previous history of stroke, TIA, or amaurosis. Past Medical History Cardiovascular: CHF, HTN Pulmonary: No pertinent hx CENTRAL NERVOUS SYSTEM: TIA, Vertigo GI: No pertinent hx Heme/Onc: No pertinent hx Hepatobiliary: No pertinent hx Psych: Addictions Musculoskeletal: Other Rheumatologic: No pertinent hx Infectious disease: No pertinent hx ENT: No pertinent hx Dermatology: No pertinent hx Past Surgical History Past Surgical History: Other Family History Family History: Cancer, Heart Disease Social History No ALCOHOL: heavy (2 beers per day) Drugs: None, Marijuana Lives: with Family Domestic Violence: Neg Current Problem List Problem List Problems Medical Problems: (1) Accelerated hypertension Status: Acute (2) CVA, old, ataxia Status: Acute (3) 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 Status: Acute Current Medications Current Medications Current Medications Clonidine HCl (Catapres) 0.2 mg 1X ONCE PO Last administered on 02/27/17 08: 26; Start 02/27/17 at 08:00; Stop 02/27/17 at 08:01; Status DC Chlorpromazine HCl 25 mg/Dextrose 51 ml @ 100 mls/hr 1X ONCE IV ; Start 02/27 at 08:15; Stop 02/27/17 at 08:15; Status DC Chlorpromazine HCl 25 mg/Sodium Chloride 51 ml @ 100 mls/hr 1X ONCE IV Last administered on 02/27/17 08:27; Start 02/27/17 at 08:15; Stop 02/27/17 at 08 :45; Status DC Metoclopramide HCl (Reglan Vial) 10 mg 1X ONCE IV Last administered on 10:25; Start 02/27/17 at 10:15; Stop 02/27/17 at 10:16; Status DC Diphenhydramine HCl (Benadryl) 25 mg 1X ONCE IVP Last administered on 10:25; Start 02/27/17 at 10:15; Stop 02/27/17 at 10:16; Status DC Iohexol (Omnipaque 300 Mg/ml) 75 ml 1X ONCE PO Last administered on 10:55; Start 02/27/17 at 10:45; Stop 02/27/17 at 10:46; Status DC Info (Do NOT chart on this entry -- for MONITORING) 1 each PRN DAILY PRN MC SEE COMMENTS; Start 02/27/17 at 10:45; Stop 03/01/17 at 10:44 Aspirin (Children'S Aspirin) 162 mg 1X ONCE PO Last administered on 13:01; Start 02/27/17 at 12:45; Stop 02/27/17 at 12:51; Status DC Ondansetron HCl (Zofran) 4 mg PRN Q8HRS PRN IV NAUSEA/VOMITING; Start at 13:45; Stop 02/28/17 at 13:44 Fentanyl Citrate (Fentanyl 2ml Vial) 50 mcg PRN Q1HR PRN IV PAIN; Start at 13:45; Stop 02/28/17 at 13:44 Labetalol HCl (Normodyne) 20 mg PRN Q2HRS PRN IVP HYPERTENSION, SEE COMMENTS; Start 02/27/17 at 13:45; Stop 02/27/17 at 14:33; Status DC Lisinopril (Prinivil) 10 mg DAILY PO ; Start 02/27/17 at 16:00 Acetaminophen (Tylenol) 650 mg PRN Q6HRS PRN PO FEVER; Start 02/27/17 at 15:30 Ondansetron HCl (Zofran) 4 mg PRN Q6HRS PRN IV NAUSEA/VOMITING; Start 11/15/ 17 at 15:30 Morphine Sulfate 2 mg PRN Q2HR PRN IV PAIN; Start 02/27/17 at 15:30 Tramadol HCl (Ultram) 50 mg PRN Q6HRS PRN PO PAIN; Start 02/27/17 at 15:30 Hydralazine HCl (Apresoline Inj) 10 mg PRN Q4HRS PRN IVP ELEVATED BP, SEE COMMENTS; Start 02/27/17 at 15:30 Docusate Sodium (Colace) 100 mg PRN DAILY PRN PO CONSTIPATION; Start 02/27/17 at 15:30 Clopidogrel Bisulfate (Plavix) 300 mg 1X ONCE PO Last administered on t 15:30; Start 02/27/17 at 15:30; Stop 02/27/17 at 15:43; Status DC Clopidogrel Bisulfate (Plavix) 75 mg DAILYWBKFT PO ; Start 02/28/17 at 08:00 Enoxaparin Sodium (Lovenox 40mg Syringe) 40 mg Q24H SQ ; Start 02/27/17 at 16: 00 Atorvastatin Calcium (Lipitor) 40 mg QHS PO ; Start 02/27/17 at 21:00 Active Scripts Active Children's Aspirin (Aspirin) 81 Mg Tab.chew 81 Mg PO DAILYWBKFT Reported Lisinopril 10 Mg Tablet 1 Tab PO DAILY Metoprolol Tartrate 25 Mg Tablet 1 Tab PO BID Allergies Allergies: Coded Allergies: No Known Drug Allergies (Unverified , 06/08/13) Physical Exam General: Alert, Oriented X3, Cooperative, No acute distress HEENT: Atraumatic, PERRLA, EOMI Lungs: Clear to auscultation, Normal air movement Heart: Regular rate, Normal S1, Normal S2, Other (positive systolic ejection murmur 3 out of 6) Abdomen: Normal bowel sounds, Soft, No tenderness, No masses Extremities: No clubbing, No cyanosis, No edema, No tenderness/swelling Skin: No rashes, No breakdown, No significant lesion Neuro: Normal speech, Strength at 5/5 X4 ext, Sensation intact, Cranial nerves 3-12 NL Psych/Mental Status: Mental status NL, Mood NL MUSCULOSKELETAL: Full range of motion without pain Vitals VITALS Vital Signs Date Time Temp Pulse Resp B/P (MAP) Pulse Ox O2 Delivery O2 Flow Rate FiO2 02/27/17 16:00 47 156/88 02/27/17 15:00 97.6 18 98 Room Air 97.6 Labs Labs Laboratory Tests Test 02/27/17 08:10 02/27/17 10:05 White Blood Count 6.7 x10^3/uL (4.0-11.0) Red Blood Count 4.66 x10^6/uL (4.30-5.70) Hemoglobin 18.1 g/dL (13.0-17.5) Hematocrit 52.3 % (39.0-53.0) Mean Corpuscular Volume 112 fL (79-100) Mean Corpuscular Hemoglobin 39 pg (25-35) Mean Corpuscular Hemoglobin Concent 35 g/dL (31-37) Red Cell Distribution Width 13.5 % (11.5-14.5) Platelet Count 170 x10^3/uL (140-400) Neutrophils (%) (Auto) 78 % (31-73) Lymphocytes (%) (Auto) 12 % (24-48) Monocytes (%) (Auto) 8 % (0-9) Eosinophils (%) (Auto) 1 % (0-3) Basophils (%) (Auto) 1 % (0-3) Neutrophils # (Auto) 5.3 x10^3uL (1.8-7.7) Lymphocytes # (Auto) 0.8 x10^3/uL (1.0-4.8) Monocytes # (Auto) 0.5 x10^3/uL (0.0-1.1) Eosinophils # (Auto) 0.1 x10^3/uL (0.0-0.7) Basophils # (Auto) 0.1 x10^3/uL (0.0-0.2) Platelet Estimate Adequate (ADEQUATE) Macrocytosis Mod Sodium Level 132 mmol/L (136-145) Potassium Level 3.7 mmol/L (3.5-5.1) Chloride Level 99 mmol/L (98-107) Carbon Dioxide Level 24 mmol/L (21-32) Anion Gap 9 (6-14) Blood Urea Nitrogen 13 mg/dL (8-26) Creatinine 1.1 mg/dL (0.7-1.3) Estimated GFR (Cockcroft-Gault) 68.1 BUN/Creatinine Ratio 12 (6-20) Glucose Level 149 mg/dL (70-99) Calcium Level 9.2 mg/dL (8.5-10.1) Magnesium Level 1.9 mg/dL (1.8-2.4) Total Bilirubin 1.4 mg/dL (0.2-1.0) Aspartate Amino Transf (AST/SGOT) 29 U/L (15-37) Alanine Aminotransferase (ALT/SGPT) 35 U/L (16-63) Alkaline Phosphatase 61 U/L (46-116) Total Protein 7.6 g/dL (6.4-8.2) Albumin 3.5 g/dL (3.4-5.0) Albumin/Globulin Ratio 0.9 (1.0-1.7) Thyroid Stimulating Hormone (TSH) 2.584 uIU/mL (0.358-3.74) Urine Opiates Screen Neg (NEG) Urine Methadone Screen Neg (NEG) Urine Barbiturates Neg (NEG) Urine Phencyclidine Screen Neg (NEG) Urine Amphetamine/Methamphetamine Neg (NEG) Urine Benzodiazepines Screen Pos (NEG) Urine Cocaine Screen Neg (NEG) Urine Cannabinoids Screen Pos (NEG) Urine Ethyl Alcohol Neg (NEG) Laboratory Tests Test 02/27/17 08:10 02/27/17 10:05 White Blood Count 6.7 x10^3/uL (4.0-11.0) Red Blood Count 4.66 x10^6/uL (4.30-5.70) Hemoglobin 18.1 g/dL (13.0-17.5) Hematocrit 52.3 % (39.0-53.0) Mean Corpuscular Volume 112 fL (79-100) Mean Corpuscular Hemoglobin 39 pg (25-35) Mean Corpuscular Hemoglobin Concent 35 g/dL (31-37) Red Cell Distribution Width 13.5 % (11.5-14.5) Platelet Count 170 x10^3/uL (140-400) Neutrophils (%) (Auto) 78 % (31-73) Lymphocytes (%) (Auto) 12 % (24-48) Monocytes (%) (Auto) 8 % (0-9) Eosinophils (%) (Auto) 1 % (0-3) Basophils (%) (Auto) 1 % (0-3) Neutrophils # (Auto) 5.3 x10^3uL (1.8-7.7) Lymphocytes # (Auto) 0.8 x10^3/uL (1.0-4.8) Monocytes # (Auto) 0.5 x10^3/uL (0.0-1.1) Eosinophils # (Auto) 0.1 x10^3/uL (0.0-0.7) Basophils # (Auto) 0.1 x10^3/uL (0.0-0.2) Platelet Estimate Adequate (ADEQUATE) Macrocytosis Mod Sodium Level 132 mmol/L (136-145) Potassium Level 3.7 mmol/L (3.5-5.1) Chloride Level 99 mmol/L (98-107) Carbon Dioxide Level 24 mmol/L (21-32) Anion Gap 9 (6-14) Blood Urea Nitrogen 13 mg/dL (8-26) Creatinine 1.1 mg/dL (0.7-1.3) Estimated GFR (Cockcroft-Gault) 68.1 BUN/Creatinine Ratio 12 (6-20) Glucose Level 149 mg/dL (70-99) Calcium Level 9.2 mg/dL (8.5-10.1) Magnesium Level 1.9 mg/dL (1.8-2.4) Total Bilirubin 1.4 mg/dL (0.2-1.0) Aspartate Amino Transf (AST/SGOT) 29 U/L (15-37) Alanine Aminotransferase (ALT/SGPT) 35 U/L (16-63) Alkaline Phosphatase 61 U/L (46-116) Total Protein 7.6 g/dL (6.4-8.2) Albumin 3.5 g/dL (3.4-5.0) Albumin/Globulin Ratio 0.9 (1.0-1.7) Thyroid Stimulating Hormone (TSH) 2.584 uIU/mL (0.358-3.74) Urine Opiates Screen Neg (NEG) Urine Methadone Screen Neg (NEG) Urine Barbiturates Neg (NEG) Urine Phencyclidine Screen Neg (NEG) Urine Amphetamine/Methamphetamine Neg (NEG) Urine Benzodiazepines Screen Pos (NEG) Urine Cocaine Screen Neg (NEG) Urine Cannabinoids Screen Pos (NEG) Urine Ethyl Alcohol Neg (NEG) Assessment/Plan Assessment/Plan Left medulla infarct--the patient certainly gives a strong history for posterior circulation stroke especially in the setting of a occluded left vertebral artery. The patient has diffuse disease of the right vertebral artery from its origin into the vertebral basilar segment. The patient's carotid arteries have atherosclerotic plaque but no significant luminal narrowing. There is no obvious evidence of ulceration of the plaque. There is no surgical therapy that can be offered for diffuse vertebral artery disease. The left vertebral artery is completely occluded and cannot be revascularized. My recommendation would be to change the patient to an 81 mg aspirin and continue 75 mg of Plavix daily. I would also recommend intensive statin therapy with atorvastatin 40 mg every nightly. The patient is undergoing other embolic workup per cardiology and this is pending. All questions were answered to his satisfaction regarding this condition. Carotid artery stenosis--patient has mild plaque in his carotid arteries which is more severe on the left than the right. I did recommend that the patient should follow up in my office in 6 months to continue to monitor his carotid arteries since these are vital collateral circulation to the brain given the heavy vertebral artery disease. All questions were answered to his satisfaction. Hypertension--the patient was significantly hypertensive upon admission and his blood pressure medicine could need to be adjusted. I will defer this to the medical team but this will also be important for his overall management of his comorbidities. Hyperlipidemia--again the patient should be on intensive statin therapy for risk factor modification regardless of his cholesterol panel. This would more be for anti-inflammatory and pleomorphic benefits. His goal LDL level should be less than 70. LEWIS HERNANDEZ DO Feb 27, 2017 18:40
[2017-02-27 19:00] VITALS: BP 147/97
--- NOTE | 2017-02-27 19:51 | PDOC2 ---
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 Left ICA stenosis, 50%. Headache.Tingling in hands. Left side neck pain. Old lacunar infarct. Alcohol use/abuse. HTN Hyponatremia. Hx of spleen rupture. Cannabinoids positive. RECOMMENDATIONS/PLAN: Plavix 75 mg daily. ASA 81 mg daily. Lipitor 40 mh HS. Carotid A US + Doppler. Echo + Bubble study. Fasting lipids panel. Treat medical diseases. OT/PT. HISTORY OF THE PRESENT ILLNESS: 61-y-old male patient with above medical disease developed symptoms of sudden onset headache, left side neck pain, numbness and tingling in hands, generalized weakness in all extremities around 8:00 am while working the day before. He squad down and sat and his symptoms slightly lessen then he went to home. However, his symptoms persistent, so he came to the ER of [facility] [place] on . Past Medical History Cardiovascular: CHF, HTN Psych: Addictions Past Surgical History No major surgery recently. Family History Cancer, Heart Disease Social History Smoke: No ALCOHOL: heavy Drugs: Marijuana ALLERGY: Reviewed. MEDICATIONS: Refer to MAR REVIEW OF SYSTEMS: Constitutional: No cachexia. Head: No recent traumatic brain or head injury. Skin: No edema, or rash. Ear: No infection. Eyes: No vision loss or color blindness. Nose: No bleeding or purulent discharges. Hearing: No hearing decrease. Neck: No injury. Cardiac: HTN, HLD. Pulmonary: No pneumonia. GI: No GI ulcer, GI bleeding. Urinary/genital: No dysuria, incontinence, urinary retention. Endocrinologic: No cousin face, craniofacial dysmorphism, polydactyly. Skeletomuscular: No muscular atrophy, deformity. Neurological: see HP. Psychiatric: marijuana use/abuse. Otherwise, not [id number] review of systems. PHYSICAL EXAMINATION: General appearance is in subacute distress. HEENT: Normocephalic and nontraumatic. Eyes, nose, ears, and throat are unremarkable. Neck is supple. No lymphadenopathy. No crepitus. Cardiovascular: S1, S2, regular rate and rhythm. Pulmonary: Clear to auscultation bilaterally. Abdomen: Bowel sounds are positive. Abdomen is soft, nontender, and nondistended. Extremities: No rash, lesions, or edema. No restriction of range of motion NEUROLOGICAL EXAMINATION: Alert Oriented to time, place and person. PERRL. EOMI. CN: no focal findings. Muscle tone: within normal. Muscle strength: 5- DTR: 2 Plantar reflex: Flexor response bilaterally Gait: not examined in bed. Sensory exam: no abnormal findings. No acute cerebellar signs elicited. F-T-N test fine. Current Medications Current Medications Current Medications Clonidine HCl (Catapres) 0.2 mg 1X ONCE PO Last administered on 02/27/17 08: 26; Start 02/27/17 at 08:00; Stop 02/27/17 at 08:01; Status DC Chlorpromazine HCl 25 mg/Dextrose 51 ml @ 100 mls/hr 1X ONCE IV ; Start 02/27 at 08:15; Stop 02/27/17 at 08:15; Status DC Chlorpromazine HCl 25 mg/Sodium Chloride 51 ml @ 100 mls/hr 1X ONCE IV Last administered on 02/27/17 08:27; Start 02/27/17 at 08:15; Stop 02/27/17 at 08 :45; Status DC Metoclopramide HCl (Reglan Vial) 10 mg 1X ONCE IV Last administered on 10:25; Start 02/27/17 at 10:15; Stop 02/27/17 at 10:16; Status DC Diphenhydramine HCl (Benadryl) 25 mg 1X ONCE IVP Last administered on 10:25; Start 02/27/17 at 10:15; Stop 02/27/17 at 10:16; Status DC Iohexol (Omnipaque 300 Mg/ml) 75 ml 1X ONCE PO Last administered on 10:55; Start 02/27/17 at 10:45; Stop 02/27/17 at 10:46; Status DC Info (Do NOT chart on this entry -- for MONITORING) 1 each PRN DAILY PRN MC SEE COMMENTS; Start 02/27/17 at 10:45; Stop 03/01/17 at 10:44 Aspirin (Children'S Aspirin) 162 mg 1X ONCE PO Last administered on 13:01; Start 02/27/17 at 12:45; Stop 02/27/17 at 12:51; Status DC Ondansetron HCl (Zofran) 4 mg PRN Q8HRS PRN IV NAUSEA/VOMITING; Start at 13:45; Stop 02/28/17 at 13:44 Fentanyl Citrate (Fentanyl 2ml Vial) 50 mcg PRN Q1HR PRN IV PAIN; Start at 13:45; Stop 02/28/17 at 13:44 Labetalol HCl (Normodyne) 20 mg PRN Q2HRS PRN IVP HYPERTENSION, SEE COMMENTS; Start 02/27/17 at 13:45; Stop 02/27/17 at 14:33; Status DC Lisinopril (Prinivil) 10 mg DAILY PO ; Start 02/27/17 at 16:00 Acetaminophen (Tylenol) 650 mg PRN Q6HRS PRN PO FEVER; Start 02/27/17 at 15:30 Ondansetron HCl (Zofran) 4 mg PRN Q6HRS PRN IV NAUSEA/VOMITING; Start at 15:30 Morphine Sulfate 2 mg PRN Q2HR PRN IV PAIN; Start 02/27/17 at 15:30 Tramadol HCl (Ultram) 50 mg PRN Q6HRS PRN PO PAIN; Start 02/27/17 at 15:30 Hydralazine HCl (Apresoline Inj) 10 mg PRN Q4HRS PRN IVP ELEVATED BP, SEE COMMENTS; Start 02/27/17 at 15:30 Docusate Sodium (Colace) 100 mg PRN DAILY PRN PO CONSTIPATION; Start 02/27/17 at 15:30 Clopidogrel Bisulfate (Plavix) 300 mg 1X ONCE PO Last administered on t 15:30; Start 02/27/17 at 15:30; Stop 02/27/17 at 15:43; Status DC Clopidogrel Bisulfate (Plavix) 75 mg DAILYWBKFT PO ; Start 02/28/17 at 08:00 Enoxaparin Sodium (Lovenox 40mg Syringe) 40 mg Q24H SQ ; Start 02/27/17 at 16: 00 Atorvastatin Calcium (Lipitor) 40 mg QHS PO ; Start 02/27/17 at 21:00 Info (Do NOT chart on this placeholder) 1 each 1X ONCE MC ; Start 02/27/17 at 18:30; Stop 02/27/17 at 18:31; Status UNV Influenza Virus Vaccine Quadrival (Fluarix Quad [id number] Syringe) 0.5 ml ONCE ONCE VAX IM ; Start 02/28/17 at 09:00; Stop 02/28/17 at 09:01 Active Scripts Active Children's Aspirin (Aspirin) 81 Mg Tab.chew 81 Mg PO DAILYWBKFT Reported Lisinopril 10 Mg Tablet 1 Tab PO DAILY Metoprolol Tartrate 25 Mg Tablet 1 Tab PO BID Allergies Allergies: Coded Allergies: No Known Drug Allergies (Unverified , 06/08/13) Vitals VITALS Vital Signs Date Time Temp Pulse Resp B/P (MAP) Pulse Ox O2 Delivery O2 Flow Rate FiO2 02/27/17 17:21 Room Air 02/27/17 16:00 47 156/88 02/27/17 15:00 97.6 18 98 97.6 Labs Labs Laboratory Tests Test 02/27/17 08:10 02/27/17 10:05 White Blood Count 6.7 x10^3/uL (4.0-11.0) Red Blood Count 4.66 x10^6/uL (4.30-5.70) Hemoglobin 18.1 g/dL (13.0-17.5) Hematocrit 52.3 % (39.0-53.0) Mean Corpuscular Volume 112 fL (79-100) Mean Corpuscular Hemoglobin 39 pg (25-35) Mean Corpuscular Hemoglobin Concent 35 g/dL (31-37) Red Cell Distribution Width 13.5 % (11.5-14.5) Platelet Count 170 x10^3/uL (140-400) Neutrophils (%) (Auto) 78 % (31-73) Lymphocytes (%) (Auto) 12 % (24-48) Monocytes (%) (Auto) 8 % (0-9) Eosinophils (%) (Auto) 1 % (0-3) Basophils (%) (Auto) 1 % (0-3) Neutrophils # (Auto) 5.3 x10^3uL (1.8-7.7) Lymphocytes # (Auto) 0.8 x10^3/uL (1.0-4.8) Monocytes # (Auto) 0.5 x10^3/uL (0.0-1.1) Eosinophils # (Auto) 0.1 x10^3/uL (0.0-0.7) Basophils # (Auto) 0.1 x10^3/uL (0.0-0.2) Platelet Estimate Adequate (ADEQUATE) Macrocytosis Mod Sodium Level 132 mmol/L (136-145) Potassium Level 3.7 mmol/L (3.5-5.1) Chloride Level 99 mmol/L (98-107) Carbon Dioxide Level 24 mmol/L (21-32) Anion Gap 9 (6-14) Blood Urea Nitrogen 13 mg/dL (8-26) Creatinine 1.1 mg/dL (0.7-1.3) Estimated GFR (Cockcroft-Gault) 68.1 BUN/Creatinine Ratio 12 (6-20) Glucose Level 149 mg/dL (70-99) Calcium Level 9.2 mg/dL (8.5-10.1) Magnesium Level 1.9 mg/dL (1.8-2.4) Total Bilirubin 1.4 mg/dL (0.2-1.0) Aspartate Amino Transf (AST/SGOT) 29 U/L (15-37) Alanine Aminotransferase (ALT/SGPT) 35 U/L (16-63) Alkaline Phosphatase 61 U/L (46-116) Total Protein 7.6 g/dL (6.4-8.2) Albumin 3.5 g/dL (3.4-5.0) Albumin/Globulin Ratio 0.9 (1.0-1.7) Thyroid Stimulating Hormone (TSH) 2.584 uIU/mL (0.358-3.74) Urine Opiates Screen Neg (NEG) Urine Methadone Screen Neg (NEG) Urine Barbiturates Neg (NEG) Urine Phencyclidine Screen Neg (NEG) Urine Amphetamine/Methamphetamine Neg (NEG) Urine Benzodiazepines Screen Pos (NEG) Urine Cocaine Screen Neg (NEG) Urine Cannabinoids Screen Pos (NEG) Urine Ethyl Alcohol Neg (NEG) Laboratory Tests Test 02/27/17 08:10 02/27/17 10:05 White Blood Count 6.7 x10^3/uL (4.0-11.0) Red Blood Count 4.66 x10^6/uL (4.30-5.70) Hemoglobin 18.1 g/dL (13.0-17.5) Hematocrit 52.3 % (39.0-53.0) Mean Corpuscular Volume 112 fL (79-100) Mean Corpuscular Hemoglobin 39 pg (25-35) Mean Corpuscular Hemoglobin Concent 35 g/dL (31-37) Red Cell Distribution Width 13.5 % (11.5-14.5) Platelet Count 170 x10^3/uL (140-400) Neutrophils (%) (Auto) 78 % (31-73) Lymphocytes (%) (Auto) 12 % (24-48) Monocytes (%) (Auto) 8 % (0-9) Eosinophils (%) (Auto) 1 % (0-3) Basophils (%) (Auto) 1 % (0-3) Neutrophils # (Auto) 5.3 x10^3uL (1.8-7.7) Lymphocytes # (Auto) 0.8 x10^3/uL (1.0-4.8) Monocytes # (Auto) 0.5 x10^3/uL (0.0-1.1) Eosinophils # (Auto) 0.1 x10^3/uL (0.0-0.7) Basophils # (Auto) 0.1 x10^3/uL (0.0-0.2) Platelet Estimate Adequate (ADEQUATE) Macrocytosis Mod Sodium Level 132 mmol/L (136-145) Potassium Level 3.7 mmol/L (3.5-5.1) Chloride Level 99 mmol/L (98-107) Carbon Dioxide Level 24 mmol/L (21-32) Anion Gap 9 (6-14) Blood Urea Nitrogen 13 mg/dL (8-26) Creatinine 1.1 mg/dL (0.7-1.3) Estimated GFR (Cockcroft-Gault) 68.1 BUN/Creatinine Ratio 12 (6-20) Glucose Level 149 mg/dL (70-99) Calcium Level 9.2 mg/dL (8.5-10.1) Magnesium Level 1.9 mg/dL (1.8-2.4) Total Bilirubin 1.4 mg/dL (0.2-1.0) Aspartate Amino Transf (AST/SGOT) 29 U/L (15-37) Alanine Aminotransferase (ALT/SGPT) 35 U/L (16-63) Alkaline Phosphatase 61 U/L (46-116) Total Protein 7.6 g/dL (6.4-8.2) Albumin 3.5 g/dL (3.4-5.0) Albumin/Globulin Ratio 0.9 (1.0-1.7) Thyroid Stimulating Hormone (TSH) 2.584 uIU/mL (0.358-3.74) Urine Opiates Screen Neg (NEG) Urine Methadone Screen Neg (NEG) Urine Barbiturates Neg (NEG) Urine Phencyclidine Screen Neg (NEG) Urine Amphetamine/Methamphetamine Neg (NEG) Urine Benzodiazepines Screen Pos (NEG) Urine Cocaine Screen Neg (NEG) Urine Cannabinoids Screen Pos (NEG) Urine Ethyl Alcohol Neg (NEG) PERLITA RODRIGUEZ MD Feb 27, 2017 19:51
[2017-02-27] MEDS ORDERED: diphenhydrAMINE HCL 25 MG CAPSULE PO PRN (20:30)
[2017-02-27] MEDS: ATORVASTATIN CALCIUM 40 MG TABLET. PO SCH (21:13)
[2017-02-27] MEDS: METOCLOPRAMIDE HCL 10 MG/2 ML VIAL. IV PRN (21:13)
[2017-02-27] MEDS: PANTOPRAZOLE IV PUSH 40 MG VIAL. IVP SCH (21:14)
[2017-02-27 23:29] VITALS: BP 146/88
[2017-02-28 03:56] VITALS: BP 191/98
[2017-02-28 06:51] LABS: BASO % 1 % (0-3); EOS % 1 % (0-3); HEMATOCRIT 48.3 % (39.0-53.0); HEMOGLOBIN 16.8 g/dL (13.0-17.5); LYMPH % 17 % (24-48); MEAN CORPUSCULAR HEMOGLOBIN 39 pg (25-35); MEAN CORPUSCULAR HGB CONC 35 g/dL (31-37); MEAN CORPUSCULAR VOLUME 113 fL (79-100); MONO % 9 % (0-9); NEUT % 73 % (31-73); PLATELET COUNT 142 x10^3/uL (140-400); RED BLOOD COUNT 4.29 x10^6/uL (4.30-5.70); RED CELL DISTRIBUTION WIDTH 13.6 % (11.5-14.5)
[2017-02-28 06:57] LABS: CALCIUM 8.9 mg/dL (8.5-10.1); CHOLESTEROL/HDL RATIO 3.7; CREATININE 1.3 mg/dL (0.7-1.3); GFR 56.1; POTASSIUM 3.4 mmol/L (3.5-5.1)
[2017-02-28 07:00] VITALS: BP 159/86
[2017-02-28] MEDS: PANTOPRAZOLE IV PUSH 40 MG VIAL. IVP SCH (08:55)
[2017-02-28] MEDS: CLOPIDOGREL BISULFATE 75 MG TABLET PO SCH (08:55)
[2017-02-28] MEDS: LISINOPRIL 10 MG TABLET PO SCH (08:56)
[2017-02-28] MEDS ORDERED: FLU VACC QS2017-18 (36MOS+)/PF 0.5 ML SYRINGE. VAX IM ONE (09:00)
[2017-02-28 11:00] VITALS: BP 162/98
--- NOTE | 2017-02-28 13:18 | CARD ---
APPROVED REPORT EXAM: Two-dimensional and M-mode echocardiogram with Doppler and color Doppler. Other Information Quality : AverageHR: 76bpm INDICATION CVA/TIA Echo Enhancing Agent Indication: Rule Out Septal Defect Agent/Amount Used: Agitated Saline mL 2D DIMENSIONS Left Atrium(2D)3.9 (1.6-4.0cm)IVSd1.6 (0.7-1.1cm) Aortic Root(2D)2.7 (2.0-3.7cm)LVDd4.4 (3.9-5.9cm) PWd1.5 (0.7-1.1cm)LVDs2.9 (2.5-4.0cm) FS (%) 34.6 %SV55.5 ml LVEF(%)64.0 (>50%) Tricuspid Valve TR P. [id number] Peak Gr.19mmHg LEFT VENTRICLE The left ventricle is normal size. There is mild to moderate concentric left ventricular hypertrophy. Left ventricle systolic function is normal. The Ejection Fraction is 55-60%. Limited wall motion leoncio luation due to suboptimal images. Grossly normal wall motion. RIGHT VENTRICLE The right ventricle is normal size. The right ventricular systolic function is normal. ATRIA The left atrium size is normal. The right atrium size is normal. The interatrial septum is intact wit h no evidence for an atrial septal defect or patent foramen ovale. Agitated saline contrast study did not reveal any evidence of right to left shunt. GREAT VESSELS Not assessed. PERICARDIAL EFFUSION There is no pleural effusion. There is no evidence of significant pericardial effusion. Critical Notification Critical Value: No <Conclusion> Left ventricle systolic function is normal. The Ejection Fraction is 55-60%. Limited wall motion evaluation due to suboptimal images. Grossly normal wall motion. The interatrial septum is intact with no evidence for an atrial septal defect or patent foramen ovale . Agitated saline contrast study did not reveal any evidence of right to left shunt.
--- NOTE | 2017-02-28 14:02 | PDOC ---
PROGRESS NOTES Chief Complaint Chief Complaint ataxia ASSESSMENT AND PLAN: 1. Acute L medulla CVA: arterial W/U with cerebral artery occlusion on L, diffuse dz on R; no appropriate surgical intervention possible. otehr studies ( echo w/ bubble, US carotids) w/o significant findings. medical management: ASA , plavix, statin 2. Ataxia: 2/2 to above. OT/PT eval for acute rehab; d/w SW 3. HTN urgency: permissive HTN, stepwise addition of more meds over the next few days 4. Hyponatremia: minimal, stable. monitor 5. Hypokalemia: replete PO 6. Bradycardia: borderline. asymptomatic. precludes BB for HTN 8. mild to moderate 9. Multi-substance abuse: EtoH (quit 2 weeks ago), cannabis 10. Vit B12 deficiency: replete parenterally for now 11. Prophylaxis History of Present Illness History of Present Illness difficulties walking unaided. no current AZEVEDO. Vitals Vitals Vital Signs Date Time Temp Pulse Resp B/P (MAP) Pulse Ox O2 Delivery O2 Flow Rate FiO2 02/28/17 11:00 97.8 72 18 162/98 (119) 97 Room Air 97.8 Physical Exam General: Alert, Oriented X3, Cooperative, No acute distress Heart: Regular rate, Other (3/6 ROBERT) Lungs: Clear Abdomen: Normal bowel sounds, Soft, No tenderness Extremities: No edema Skin: No rashes Labs LABS Laboratory Tests Test 02/28/17 05:38 White Blood Count 6.0 x10^3/uL (4.0-11.0) Red Blood Count 4.29 x10^6/uL (4.30-5.70) Hemoglobin 16.8 g/dL (13.0-17.5) Hematocrit 48.3 % (39.0-53.0) Mean Corpuscular Volume 113 fL (79-100) Mean Corpuscular Hemoglobin 39 pg (25-35) Mean Corpuscular Hemoglobin Concent 35 g/dL (31-37) Red Cell Distribution Width 13.6 % (11.5-14.5) Platelet Count 142 x10^3/uL (140-400) Neutrophils (%) (Auto) 73 % (31-73) Lymphocytes (%) (Auto) 17 % (24-48) Monocytes (%) (Auto) 9 % (0-9) Eosinophils (%) (Auto) 1 % (0-3) Basophils (%) (Auto) 1 % (0-3) Neutrophils # (Auto) 4.4 x10^3uL (1.8-7.7) Lymphocytes # (Auto) 1.0 x10^3/uL (1.0-4.8) Monocytes # (Auto) 0.5 x10^3/uL (0.0-1.1) Eosinophils # (Auto) 0.1 x10^3/uL (0.0-0.7) Basophils # (Auto) 0.0 x10^3/uL (0.0-0.2) Sodium Level 133 mmol/L (136-145) Potassium Level 3.4 mmol/L (3.5-5.1) Chloride Level 100 mmol/L (98-107) Carbon Dioxide Level 24 mmol/L (21-32) Anion Gap 9 (6-14) Blood Urea Nitrogen 15 mg/dL (8-26) Creatinine 1.3 mg/dL (0.7-1.3) Estimated GFR (Cockcroft-Gault) 56.1 Glucose Level 130 mg/dL (70-99) Calcium Level 8.9 mg/dL (8.5-10.1) Triglycerides Level 78 mg/dL (0-150) Cholesterol Level 169 mg/dL (0-200) LDL Cholesterol, Calculated 107 mg/dL (0-100) VLDL Cholesterol, Calculated 16 mg/dL (0-40) Non-HDL Cholesterol Calculated 123 mg/dL (0-129) HDL Cholesterol 46 mg/dL (40-60) Cholesterol/HDL Ratio 3.7 Vitamin B12 Level 241 pg/mL (247-911) LUZ CRUZ MD Feb 28, 2017 14:02
[2017-02-28 15:00] VITALS: BP 143/99
[2017-02-28] MEDS: ENOXAPARIN 40 MG/0.4 ML SYRINGE. SQ SCH (16:53)
--- NOTE | 2017-02-28 17:21 | PDOC ---
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 Left ICA stenosis, 50%. Headache.Tingling in hands. Left side neck pain. Old lacunar infarct. Alcohol use/abuse. HTN Hyponatremia. Vit B12 insufficiency. Hx of spleen rupture. Cannabinoids positive. RECOMMENDATIONS/PLAN: Plavix 75 mg daily. ASA 81 mg daily. Lipitor 40 mh HS. Vit B12 1 mg daily. Treat medical diseases. OT/PT. Echo + Bubble study: Unremarkable. Fasting lipids panel: HLD. HISTORY OF THE PRESENT ILLNESS: 61-y-old male patient with above medical disease developed symptoms of sudden onset headache, left side neck pain, numbness and tingling in hands, generalized weakness in all extremities around 8:00 am while working the day before. He squad down and sat and his symptoms slightly lessen then he went to home. However, his symptoms persistent, so he came to the ER of [facility] [place] on . He has been having haccups. Past Medical History Cardiovascular: CHF, HTN Psych: Addictions Past Surgical History No major surgery recently. Family History Cancer, Heart Disease Social History Smoke: No ALCOHOL: heavy Drugs: Marijuana ALLERGY: Reviewed. MEDICATIONS: Refer to MAR REVIEW OF SYSTEMS: Constitutional: No cachexia. Head: No recent traumatic brain or head injury. Skin: No edema, or rash. Ear: No infection. Eyes: No vision loss or color blindness. Nose: No bleeding or purulent discharges. Hearing: No hearing decrease. Neck: No injury. Cardiac: HTN, HLD. Pulmonary: No pneumonia. GI: No GI ulcer, GI bleeding. Urinary/genital: No dysuria, incontinence, urinary retention. Endocrinologic: No cousin face, craniofacial dysmorphism, polydactyly. Skeletomuscular: No muscular atrophy, deformity. Neurological: see HP. Psychiatric: marijuana use/abuse. Otherwise, not [id number] review of systems. PHYSICAL EXAMINATION: General appearance is in subacute distress. HEENT: Normocephalic and nontraumatic. Eyes, nose, ears, and throat are unremarkable. Neck is supple. No lymphadenopathy. No crepitus. Cardiovascular: S1, S2, regular rate and rhythm. Pulmonary: Clear to auscultation bilaterally. Abdomen: Bowel sounds are positive. Abdomen is soft, nontender, and nondistended. Extremities: No rash, lesions, or edema. No restriction of range of motion NEUROLOGICAL EXAMINATION: Alert Oriented to time, place and person. PERRL. EOMI. CN: no focal findings. Muscle tone: within normal. Muscle strength: 5- DTR: 2 Plantar reflex: Flexor response bilaterally Gait: not examined in bed. Sensory exam: no abnormal findings. No acute cerebellar signs elicited. F-T-N test fine. Objective Objective Vital Signs Date Time Temp Pulse Resp B/P (MAP) Pulse Ox O2 Delivery O2 Flow Rate FiO2 02/28/17 15:00 97.9 76 18 143/99 (114) 95 Room Air 97.9 Intake and Output 02/28/17 07:00 Intake Total 1550 ml Output Total 1050 ml Balance 500 ml Intake Oral 1450 ml IV Total 100 ml Output Urine Total 1050 ml # Voids 2 Vitals Signs Vitals VS - Last 72 Hours, by Label Date Time Temp Pulse Resp B/P (MAP) Pulse Ox O2 Delivery O2 Flow Rate FiO2 02/28/17 15:00 97.9 76 18 143/99 (114) 95 Room Air 97.9 02/28/17 11:00 97.8 72 18 162/98 (119) 97 Room Air 97.8 02/28/17 08:56 64 159/86 02/28/17 07:00 97.9 64 18 159/86 (110) 96 Room Air 97.9 02/28/17 04:08 60 191/98 02/28/17 03:56 98.2 60 17 191/98 (129) 98 Room Air 98.2 02/27/17 23:29 98.4 62 18 146/88 (107) 95 Room Air 98.4 02/27/17 20:00 Room Air 02/27/17 19:00 98.1 65 20 147/97 (114) 98 Room Air 98.1 02/27/17 17:21 Room Air 02/27/17 16:00 47 156/88 02/27/17 15:00 97.6 47 18 156/88 (110) 98 Room Air 97.6 02/27/17 15:00 97.6 47 18 156/88 (110) 98 Room Air 97.6 02/27/17 13:38 53 13 97 02/27/17 13:08 55 21 96 02/27/17 12:38 60 17 97 02/27/17 12:08 51 15 97 02/27/17 11:53 58 24 02/27/17 11:00 53 02/27/17 10:30 70 20 96 02/27/17 10:00 55 96 02/27/17 09:00 70 96 02/27/17 08:30 56 14 96 02/27/17 08:26 63 187/101 02/27/17 07:50 98.3 61 14 204/113 (143) 96 Room Air 98.3 Laboratory Laboratory Laboratory Tests Test 02/28/17 05:38 White Blood Count 6.0 x10^3/uL (4.0-11.0) Red Blood Count 4.29 x10^6/uL (4.30-5.70) Hemoglobin 16.8 g/dL (13.0-17.5) Hematocrit 48.3 % (39.0-53.0) Mean Corpuscular Volume 113 fL (79-100) Mean Corpuscular Hemoglobin 39 pg (25-35) Mean Corpuscular Hemoglobin Concent 35 g/dL (31-37) Red Cell Distribution Width 13.6 % (11.5-14.5) Platelet Count 142 x10^3/uL (140-400) Neutrophils (%) (Auto) 73 % (31-73) Lymphocytes (%) (Auto) 17 % (24-48) Monocytes (%) (Auto) 9 % (0-9) Eosinophils (%) (Auto) 1 % (0-3) Basophils (%) (Auto) 1 % (0-3) Neutrophils # (Auto) 4.4 x10^3uL (1.8-7.7) Lymphocytes # (Auto) 1.0 x10^3/uL (1.0-4.8) Monocytes # (Auto) 0.5 x10^3/uL (0.0-1.1) Eosinophils # (Auto) 0.1 x10^3/uL (0.0-0.7) Basophils # (Auto) 0.0 x10^3/uL (0.0-0.2) Sodium Level 133 mmol/L (136-145) Potassium Level 3.4 mmol/L (3.5-5.1) Chloride Level 100 mmol/L (98-107) Carbon Dioxide Level 24 mmol/L (21-32) Anion Gap 9 (6-14) Blood Urea Nitrogen 15 mg/dL (8-26) Creatinine 1.3 mg/dL (0.7-1.3) Estimated GFR (Cockcroft-Gault) 56.1 Glucose Level 130 mg/dL (70-99) Calcium Level 8.9 mg/dL (8.5-10.1) Triglycerides Level 78 mg/dL (0-150) Cholesterol Level 169 mg/dL (0-200) LDL Cholesterol, Calculated 107 mg/dL (0-100) VLDL Cholesterol, Calculated 16 mg/dL (0-40) Non-HDL Cholesterol Calculated 123 mg/dL (0-129) HDL Cholesterol 46 mg/dL (40-60) Cholesterol/HDL Ratio 3.7 Vitamin B12 Level 241 pg/mL (247-911) Medication Medications Current Medications Atorvastatin Calcium (Lipitor) 40 mg QHS PO Last administered on 02/27/17 21: 13; Start 02/27/17 at 21:00 Chlorpromazine HCl (Thorazine) 10 mg PRN Q6HRS PRN PO HICCUPS Last administered on 02/28/17 16:53; Start 02/28/17 at 14:00 Clopidogrel Bisulfate (Plavix) 75 mg DAILYWBKFT PO Last administered on 08:55; Start 02/28/17 at 08:00 Diphenhydramine HCl (Benadryl) 25 mg PRN Q6HRS PRN PO ITCHING Last administered on 02/27/17 21:19; Start 02/27/17 at 20:30 Influenza Virus Vaccine Quadrival (Fluarix Quad [id number] Syringe) 0.5 ml ONCE ONCE VAX IM Last administered on 02/28/17 08:57; Start 02/28/17 at 09:00; Stop 02/28/17 at 09:01; Status DC Info (Do NOT chart on this placeholder) 1 each 1X ONCE MC ; Start 02/27/17 at 18:30; Stop 02/27/17 at 18:31; Status UNV Metoclopramide HCl (Reglan Vial) 10 mg PRN Q6HRS PRN IV NAUSEA/VOMITING Last administered on 02/27/17 21:13; Start 02/27/17 at 20:30 Pantoprazole Sodium (Protonix Vial) 40 mg DAILYAC IVP Last administered on t 08:55; Start 02/27/17 at 20:30; Stop 02/28/17 at 16:27; Status DC Pantoprazole Sodium (Protonix) 40 mg DAILYAC PO ; Start 03/01/17 at 07:30 Comment Review of Relevant I have reviewed the following items oscar (where applicable) has been applied. PERLITA RODRIGUEZ MD Feb 28, 2017 17:21
[2017-02-28] MEDS: CYANOCOBALAMIN (VITAMIN B-12) 1,000 MCG TABLET. PO SCH (18:00)
[2017-02-28 19:00] VITALS: BP 138/86
[2017-02-28] MEDS ORDERED: TEMAZEPAM 15 MG CAPSULE PO PRN (19:45)
[2017-02-28] MEDS: ATORVASTATIN CALCIUM 40 MG TABLET. PO SCH (22:29)
[2017-02-28] MEDS: METOCLOPRAMIDE HCL 10 MG/2 ML VIAL. IV PRN (22:29)
[2017-02-28 23:00] VITALS: BP 180/94
[2017-03-01 03:00] VITALS: BP 145/87
[2017-03-01 07:00] VITALS: BP 139/97
[2017-03-01] MEDS ORDERED: PANTOPRAZOLE 40 MG TABLET.DR. PO SCH (07:30)
--- NOTE | 2017-03-01 10:05 | PDOC ---
PROGRESS NOTES Chief Complaint Chief Complaint ataxia ASSESSMENT AND PLAN: 1. Acute L medulla CVA: arterial W/U with cerebral artery occlusion on L, diffuse dz on R; no appropriate surgical intervention possible. other studies ( echo w/ bubble, US carotids) w/o significant findings. medical management: ASA , plavix, statin 2. Ataxia: 2/2 to above. OT/PT eval for acute rehab; d/w SW 3. HTN urgency: permissive HTN, stepwise addition of more meds over the next few days 4. Hyponatremia: minimal, stable. monitor 5. Hypokalemia: replete PO 6. Bradycardia: borderline. asymptomatic. precludes BB for HTN 8. mild to moderate 9. Multi-substance abuse: EtoH (quit 2 weeks ago), cannabis 10. Vit B12 deficiency: replete parenterally for now 11. Prophylaxis 12. Dispo: to acute rehab History of Present Illness History of Present Illness agreeable to rehab, mother at bedside Vitals Vitals Vital Signs Date Time Temp Pulse Resp B/P (MAP) Pulse Ox O2 Delivery O2 Flow Rate FiO2 03/01/17 07:00 98.6 73 18 139/97 (111) 97 Room Air 98.6 Physical Exam General: Alert, Oriented X3, Cooperative, No acute distress Heart: Regular rate, Other (3/6 ROBERT) Lungs: Clear Abdomen: Normal bowel sounds, Soft, No tenderness Extremities: No edema Skin: No rashes LUZ CRUZ MD Mar 01, 2017 10:05
[2017-03-01] MEDS: CLOPIDOGREL BISULFATE 75 MG TABLET PO SCH (10:23)
[2017-03-01] MEDS: CYANOCOBALAMIN (VITAMIN B-12) 1,000 MCG TABLET. PO SCH (10:23)
[2017-03-01] MEDS: LISINOPRIL 10 MG TABLET PO SCH (10:23)
[2017-03-01 11:00] VITALS: BP 151/97
--- NOTE | 2017-03-01 14:42 | PDOC ---
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 Left ICA stenosis, 50%. Headache.Tingling in hands. Left side neck pain. Old lacunar infarct. Alcohol use/abuse. HTN Hyponatremia. Vit B12 insufficiency. Hx of spleen rupture. Cannabinoids positive. RECOMMENDATIONS/PLAN: Plavix 75 mg daily. ASA 81 mg daily. Lipitor 40 mh HS. Vit B12 1 mg daily. Treat medical diseases. OT/PT. Echo + Bubble study: Unremarkable. Fasting lipids panel: HLD. HISTORY OF THE PRESENT ILLNESS: 61-y-old male patient with above medical disease developed symptoms of sudden onset headache, left side neck pain, numbness and tingling in hands, generalized weakness in all extremities around 8:00 am while working the day before. He squad down and sat and his symptoms slightly lessen then he went to home. However, his symptoms persistent, so he [place] [facility] [place] He has been having haccups. No motor deficits except numbness in his arms bilateral. Past Medical History Cardiovascular: CHF, HTN Psych: Addictions Past Surgical History No major surgery recently. Family History Cancer, Heart Disease Social History Smoke: No ALCOHOL: heavy Drugs: Marijuana ALLERGY: Reviewed. MEDICATIONS: Refer to MAR REVIEW OF SYSTEMS: Constitutional: No cachexia. Head: No recent traumatic brain or head injury. Skin: No edema, or rash. Ear: No infection. Eyes: No vision loss or color blindness. Nose: No bleeding or purulent discharges. Hearing: No hearing decrease. Neck: No injury. Cardiac: HTN, HLD. Pulmonary: No pneumonia. GI: No GI ulcer, GI bleeding. Urinary/genital: No dysuria, incontinence, urinary retention. Endocrinologic: No cousin face, craniofacial dysmorphism, polydactyly. Skeletomuscular: No muscular atrophy, deformity. Neurological: see HP. Psychiatric: marijuana use/abuse. Otherwise, not [id number] review of systems. PHYSICAL EXAMINATION: General appearance is in subacute distress. HEENT: Normocephalic and nontraumatic. Eyes, nose, ears, and throat are unremarkable. Neck is supple. No lymphadenopathy. No crepitus. Cardiovascular: S1, S2, regular rate and rhythm. Pulmonary: Clear to auscultation bilaterally. Abdomen: Bowel sounds are positive. Abdomen is soft, nontender, and nondistended. Extremities: No rash, lesions, or edema. No restriction of range of motion NEUROLOGICAL EXAMINATION: Alert Oriented to time, place and person. PERRL. EOMI. CN: no focal findings. Muscle tone: within normal. Muscle strength: 5 DTR: 2 Plantar reflex: Flexor response bilaterally Gait: normal. Sensory exam: no abnormal findings. No acute cerebellar signs elicited. F-T-N test fine. Objective Objective Vital Signs Date Time Temp Pulse Resp B/P (MAP) Pulse Ox O2 Delivery O2 Flow Rate FiO2 03/01/17 11:00 98.3 68 18 151/97 (115) 95 Room Air 98.3 Intake and Output 03/01/17 07:00 Intake Total 1150 ml Output Total 200 ml Balance 950 ml Intake Oral 1150 ml Output Urine Total 200 ml # Voids 5 Vitals Signs Vitals VS - Last 72 Hours, by Label Date Time Temp Pulse Resp B/P (MAP) Pulse Ox O2 Delivery O2 Flow Rate FiO2 03/01/17 11:00 98.3 68 18 151/97 (115) 95 Room Air 98.3 03/01/17 10:23 73 139/97 03/01/17 07:00 98.6 73 18 139/97 (111) 97 Room Air 98.6 03/01/17 03:00 99.0 78 16 145/87 (106) Room Air 99.0 02/28/17 23:00 98.0 95 18 180/94 (122) Room Air 98.0 02/28/17 19:30 Room Air 02/28/17 19:00 99.0 103 18 138/86 (103) Room Air 99.0 02/28/17 15:00 97.9 76 18 143/99 (114) 95 Room Air 97.9 02/28/17 11:00 97.8 72 18 162/98 (119) 97 Room Air 97.8 02/28/17 08:56 64 159/86 02/28/17 08:22 Room Air 02/28/17 07:00 97.9 64 18 159/86 (110) 96 Room Air 97.9 Medication Medications Current Medications Cyanocobalamin (Vitamin B-12) 1,000 mcg DAILY PO Last administered on t 10:23; Start 02/28/17 at 18:00 Pantoprazole Sodium (Protonix) 40 mg DAILYAC PO Last administered on 10:23; Start 03/01/17 at 07:30 Temazepam (Restoril) 15 mg PRN QHS PRN PO INSOMNIA Last administered on 22:29; Start 02/28/17 at 19:45 Comment Review of Relevant I have reviewed the following items oscar (where applicable) has been applied. PERLITA RODRIGUEZ MD Mar 01, 2017 14:42
[2017-03-01 15:00] VITALS: BP 166/97
[2017-03-01] MEDS: ENOXAPARIN 40 MG/0.4 ML SYRINGE. SQ SCH (16:00)
--- NOTE | 2017-03-02 19:37 | DS ---
DATE OF DISCHARGE: 03/01/2017 CHIEF COMPLAINT: Ataxia. HOSPITAL COURSE: The patient is a 61-year-old gentleman with hypertension, multi-substance abuse, who presented to the Emergency Room with gait instability. He was shown to have an acute left medullary CVA. In workup, arterial studies showed cerebral artery occlusion on the left, diffuse disease on the right, which unfortunately is not appropriate for surgical intervention. Other studies including echo and carotids did not find any significant abnormalities. Medical management was thought appropriate and he was started on aspirin, Plavix and statin. He was seen by occupational as well as physical therapy and was recommended to go to acute rehabilitation. The patient, however, declined this option and preferred going home with home physical therapy. He did have significant hypertension at admission, which initially was allowed to be permissive and brought down stepwise. He may need further adjustment in his blood pressure medications once. He has stabilized. Electrolyte abnormalities were thought to be secondary to ETOH abuse and were normalized during his hospitalization. B12 deficiency was repleted parenterally, then p.o. at time of discharge. PHYSICAL EXAMINATION: VITAL SIGNS: Blood pressure 139/97, pulse 73, respiratory rate 18. He is afebrile. GENERAL: Alert and oriented, no acute distress. LUNGS: Clear. HEART: Regular rate and rhythm. ABDOMEN: Positive bowel sounds, soft, nontender. EXTREMITIES: No edema. Significant gait instability with veering to the left. DISCHARGE DIAGNOSIS: Acute left medulla cerebrovascular accident from cerebral artery occlusion. DISCHARGE DISPOSITION: To home with services. DISCHARGE CONDITION: Improved. DISCHARGE MEDICATIONS: Please refer to MAR. DISCHARGE INSTRUCTIONS: The patient will follow up with PCP in 1-2 weeks. Greater than 30 minutes were spent in arranging discharge. LUZ CRUZ MD DR: UR/nts JOB#: [id number] / [id number] YESY Lord MD MTDD
== END 2017-03-01 17:30 | disposition home or self-care (01) | DRG 65 ==
LOC: ER 07:46 → 6 SOUTH 12:45
PROVIDERS: ADMIT Internal Medicine; ATTEND Internal Medicine
DX: I63.9 Cerebral infarction, unspecified (principal); E87.1 Hypo-osmolality and hyponatremia; I66.9 Occlusion and stenosis of unspecified cerebral artery; I50.9 Heart failure, unspecified; I11.0 Hypertensive heart disease with heart failure; E53.8 Deficiency of other specified B group vitamins; E78.5 Hyperlipidemia, unspecified; E87.6 Hypokalemia; F10.21 Alcohol dependence, in remission; I16.0 Hypertensive urgency; I65.02 Occlusion and stenosis of left vertebral artery; I65.22 Occlusion and stenosis of left carotid artery; Z79.02 Long term (current) use of antithrombotics/antiplatelets; Z79.82 Long term (current) use of aspirin
CPT/HCPCS: 93325; 99285; C8924; C8929; 36415; 70496; 70498; 70551; 72141; 80048; 80053; 80061; 80307; 82607; 83735; 84443; 85025; 90686; 93005; 93320; 96361; 96374; 96375; C9113; J0360; J1200; J1650; J2765; J3230; Q0161; Q0163; Q9967; 97110; 97116; 97530; 97535; G0479

== ENCOUNTER 2019-06-13 10:37 | Emergency (ER) | payer BC ==
[~2019-06-13] VITALS: Ht 172.7 cm; Wt 97.0 kg
[~2019-06-13 10:37] MED LIST changes: -AMLO10TA2 PO; +AMLO10TA8 PO; -ASPI81TA44 PO; +ASPI81TA59 PO; +LISI1TAB20 PO; -LISI1TAB7 PO; +OXYC5TAB4 PO; -OXYC5TAB95 PO
[2019-06-13 10:42] VITALS: BP 156/87
--- NOTE | 2019-06-13 11:12 | PHYS DOC ---
Past Medical History Past Medical History: Alcoholism, Hypertension Additional Past Medical Histor: "BLOOD INFECTION" "ENLARGED HEART" RUPTURED SPLEEN Past Surgical History: No Surgical History, Other Additional Past Surgical Histo: rt hand surgery Smoking Status: Former Smoker Alcohol Use: Heavy Drug Use: Benzodiazepine, Marijuana Adult General Chief Complaint Chief Complaint: RIB PAIN [facility] HPI Patient is a 64 year old male with history of hypertension, alcoholism, who presents to the ED today complaining of moderate sharp intermittent left anterior rib pain that began yesterday after he fell. Patient reports walking around his house, he states he tripped and fell hitting his left anterior ribs on the table. Patient denies any loss of conscious. Reports the pain is worse on deep breaths. Reports breast of the ribs help the pain. Review of Systems Review of Systems Constitutional: Denies fever or chills [] Eyes: Denies change in visual acuity, redness, or eye pain [] HENT: Denies nasal congestion or sore throat [] Respiratory: Reports left rib pain. Denies cough or shortness of breath [] Cardiovascular: No additional information not addressed in HPI [] GI: Denies abdominal pain, nausea, vomiting, bloody stools or diarrhea [] : Denies dysuria or hematuria [] Musculoskeletal: Denies back pain or joint pain [] Integument: Denies rash or skin lesions [] Neurologic: Denies headache, focal weakness or sensory changes [] All other systems were reviewed and found to be within normal limits, except as documented in this note. Allergies Allergies Allergies Coded Allergies Type Severity Reaction Last Updated Verified No Known Drug Allergies 06/08/13 No Physical Exam Physical Exam Constitutional: Well developed, well nourished, no acute distress, non-toxic appearance. [] HENT: Normocephalic, atraumatic, bilateral external ears normal, oropharynx moist, no oral exudates, nose normal. [] Eyes: PERRLA, EOMI, conjunctiva normal, no discharge. [] Neck: Normal range of motion, no tenderness, supple, no stridor. [] Cardiovascular:Heart rate regular rhythm, no murmur [] Lungs & Thorax: Left ribs with no obvious deformity. No bruising. Tenderness on palpation of left anterior ribs mid clavicular line approximately ribs 56 in 7. Bilateral breath sounds clear to auscultation [] Abdomen: Bowel sounds normal, soft, no tenderness, no masses, no pulsatile masses. [] Skin: Warm, dry, no erythema, no rash. [] Back: No tenderness, no CVA tenderness. [] Extremities: No tenderness, no cyanosis, no clubbing, ROM intact, no edema. [] Neurologic: Alert and oriented X 3, normal motor function, normal sensory function, no focal deficits noted. [] Psychologic: Affect normal, judgement normal, mood normal. [] Current Patient Data Vital Signs Vital Signs Date Time Temp Pulse Resp B/P (MAP) Pulse Ox O2 Delivery O2 Flow Rate FiO2 06/13/19 10:42 97.7 72 20 156/87 (110) 96 Room Air 97.7 EKG EKG [] Radiology/Procedures Radiology/Procedures []PROCEDURE: RIBS LEFT AND PA CHEST Left RIBS including PA chest 06/13/2019. Reason for exam: Pain after falling. There is suspected mild cortical displacement of the lateral fifth rib. There is some adjacent pleural thickening probably indicating subpleural hemorrhage. No other left rib abnormality is seen. PA view of the chest shows no infiltrate, effusion or pneumothorax. Heart size is normal. IMPRESSION: Left rib fracture. Electronically signed by: Ludin Layton Jr., MD (06/13/2019 11:45 AM) [facility] [place] and SIGNED BY: LUDIN LAYTON Jr, MD DATE: 06/13/19 1145 Course & Med Decision Making Course & Med Decision Making Pertinent Labs and Imaging studies reviewed. (See chart for details) This is a 64-year-old male patient presenting to the ED today with left rib pain status post falling onto a table yesterday. Oxygen saturation 96% on room air. Left chest x-rays including PA chest noted for-There is suspected mild cortical displacement of the lateral fifth rib. There is some adjacent pleural thickening probably indicating subpleural hemorrhage. Dr. Ruiz made aware. Recommended consult with Trauma. [address] Leal-he stated we can admit patient for observation under the hospitalist or he can be discharged to home and follow up with his own PCP or follow-up with him on Saturday as long as we give him something for pain. The above options were discussed with patient. Patient reports he is not able to stay in the hospital because he had administrative issues with crocheter as well as hospital administration when his was admitted and they are no longer allowed to see the crocheter hence he prefers to go home and follow- up with his own PCP and the trauma surgeon as an outpatient. Patient was discharged to home with hydrocodone and incentive spirometry. Dragon Disclaimer Dragon Disclaimer This electronic medical record was generated, in whole or in part, using a voice recognition dictation system. Departure Departure Impression: Primary Impression: Left rib fracture Additional Impression: Fall Disposition: HOME, SELF-CARE Condition: STABLE Referrals: YESY PEARSON MD (PCP) Follow-up on Saturday HELEN LEAL MD Follow-up on Saturday Patient Instructions: Rib Fracture, [id number] Additional Instructions: You have left fifth rib fracture. Please take the prescribed pain medicine as needed for pain use the incentive spirometry 10 times every hour when awake. Please return to the ED at any point symptoms worsen. Try to ice and elevate the affected area. Scripts Hydrocodone/Apap 5-325 (NORCO 5-325 TABLET) 1 Each Tablet 1 TAB PO Q6HRS PRN for PAIN, #20 TAB Prov: ROBERTO SUGGS APRN 06/13/19 Problem Qualifiers Primary Impression: Left rib fracture Encounter type: initial encounter Rib fracture type: single rib Fracture type: closed Qualified Codes: S22.32XA - Fracture of one rib, left side, initial encounter for closed fracture Additional Impression: Fall Encounter type: initial encounter Qualified Codes: W19.XXXA - Unspecified fall, initial encounter ROBERTO SUGGS APRN Jun 13, 2019 11:12
--- NOTE | 2019-06-13 11:48 | RAD ---
Left RIBS including PA chest 06/13/2019. Reason for exam: Pain after falling. There is suspected mild cortical displacement of the lateral fifth rib. There is some adjacent pleural thickening probably indicating subpleural hemorrhage. No other left rib abnormality is seen. PA view of the chest shows no infiltrate, effusion or pneumothorax. Heart size is normal. IMPRESSION: Left rib fracture. Electronically signed by: Preston Layton Jr., MD (06/13/2019 11:45 AM) [facility] [place]
[2019-06-13] MEDS ORDERED: HYDR-3164 PO (12:54)
== END 2019-06-13 13:05 | disposition home or self-care (01) ==
LOC: ER 10:37
DX: S22.32XA Fracture of one rib, left side, initial encounter for closed fracture (principal); I10 Essential (primary) hypertension; F12.90 Cannabis use, unspecified, uncomplicated; F15.90 Other stimulant use, unspecified, uncomplicated; F10.10 Alcohol abuse, uncomplicated; Z87.891 Personal history of nicotine dependence; Z98.890 Other specified postprocedural states; W01.10XA Fall on same level from slipping, tripping and stumbling with subsequent striking against unspecified object, initial encounter; Y93.89 Activity, other specified; Y92.099 Unspecified place in other non-institutional residence as the place of occurrence of the external cause; Y99.8 Other external cause status
CPT/HCPCS: 71101; 99283